=== PATIENT | female | born 1985 | race Caucasian/White ===

== ENCOUNTER 2021-04-15 17:42 | Emergency (ER) | payer BC, SELFPAY ==
--- NOTE | 2021-04-15 17:49 | ED.URI ---
HPI - URI/Sore Throat General Chief Complaint: Ear Stated Complaint: Ear Pain/Nausea/Diarrhea Time Seen by Provider: 04/15/21 18:16 Source: patient and RN notes reviewed Mode of arrival: ambulatory Limitations: no limitations History of Present Illness HPI Narrative: 35-year-old female presents with concern for ear pain, headache, body aches, nausea, diarrhea, fatigue after exposure to a coworker with Covid. Reports her symptoms started yesterday. She reports she is taking Excedrin. She denies shortness of breath, fever. MD elicited complaint: cough and sore throat Related Data Home Medications Medication Instructions Recorded Confirmed clonazepam 0.5 mg PO DAILY 04/15/21 04/15/21 lamotrigine [Lamictal] 200 mg PO DAILY 04/15/21 04/15/21 sertraline [Zoloft] 200 mg PO DAILY 04/15/21 04/15/21 Allergies Allergy/AdvReac Type Severity Reaction Status Date / Time Sulfa (Sulfonamide Allergy Unknown Hives / Verified 04/15/21 18:07 Antibiotics) Red Face Review of Systems Review of Systems: CONSTITUTIONAL: Reports malaise. Denies chills, sweats, or fever. EYES: Denies visual changes, redness, or discharge. ENT: Reports rhinorrhea, congestion, sinus pain, otalgia. Denies sore throat. CARDIOVASCULAR: Denies chest pain, palpitations, or edema. RESPIRATORY: Denies cough. Denies dyspnea. GASTROINTESTINAL: Denies abdominal pain. Reports nausea, vomiting, diarrhea SKIN: Denies rash or itching. MUSCULOSKELETAL: Reports myalgia. NEUROLOGIC: Reports headache. All systems reviewed & are unremarkable except as noted in HPI and below PMFSH Comments At time of signature, agree with nursing past medical, surgical, social and family history. There is no relevant family history pertinent to the presenting complaint Exam Narrative: GENERAL: Well-appearing, well-nourished, and in no acute distress. HEAD: Normocephalic EYES: PERRLA, conjunctivae clear ENT: Nares clear. Mucous membranes moist. TM pearly jameson with dull light reflex bilaterally; no tragal tenderness. Oropharynx not erythematous without lesions. Tonsils not enlarged and without exudate, no drooling, no hoarseness, no trismus, uvula midline. NECK: Supple. No lymphadenopathy CHEST: Clear to auscultation, breath sounds equal. No wheezing, rhonchi, rales, or stridor. No respiratory distress, speaks in full sentences. HEART: Regular rate and rhythm. No murmur heard. SKIN: Warm, dry, no rash. NEURO: Alert and oriented x3. PSYCH: Normal mood and affect Course Course Emergency Course: Patient is aware of diagnosis, understands and agrees to treatment plan. Anticipatory guidance given. Patient agrees to follow-up as directed and is aware of reasons to seek care at the emergency department. Portions of this record may have been created with voice recognition software Vital Signs Vital signs: Reviewed. MDM - URI/Sore Throat MDM Narrative Medical decision making narrative: Differential diagnosis considered: Pearson virus, strep pharyngitis, allergic rhinitis, upper respiratory tract infection, sinusitis, rhinosinusitis, nasopharyngitis. viral pharyngitis, otitis media, otitis externa, pneumonia, bronchitis, viral cough syndrome, viral syndrome, and influenza. Exam findings show no acute concerns or changes; patient is non-toxic appearing and is in no distress. Patient is appropriate for outpatient treatment and follow-up. Lab Data Attestation: I reviewed the patient's lab results. Critical Care Time Critical Care Time Critical Care Time: No Discharge Plan Discharge Clinical Impression: Close exposure to COVID-19 virus Upper respiratory infection Qualifiers: URI type: unspecified viral URI Qualified Code(s): J06.9 - Acute upper respiratory infection, unspecified Patient Disposition: Home, Self-Care Condition: Stable Instructions: Upper Respiratory Infection (ED) Additional Instructions: Your rapid Covid test is negative. Rapid Covid testing can have false results. An
[2021-04-15 17:53] VITALS: BP 101/57; PULSE 65; RESP 16; TEMP 37.3; O2SAT 99
== END 2021-04-15 18:37 | disposition home or self-care (01) ==
PROVIDERS: Emergency Provider Nurse Practitioner
DX: J06.9 Acute upper respiratory infection, unspecified (principal); Z20.822 Contact with and (suspected) exposure to COVID-19
CPT/HCPCS: 87426; 99213; C9803; G0463

== ENCOUNTER 2021-08-13 14:22 | Emergency (ER) | payer BC, SELFPAY ==
--- NOTE | ~2021-08-13 | CT_ITS ---
EXAMINATION: CT abdomen pelvis wo con DATE: 08/13/2021 17:35 INDICATION: flank pain, nausea TECHNIQUE: Computed tomography (CT) of the abdomen and pelvis was performed without intravenous contr ast. Automated exposure control and iterative reconstruction technique were employed. The dose-length product was 189.17 mGy-cm. COMPARISON: 10/18/2013. FINDINGS: Lower thorax: Unremarkable. Liver: Normal. Biliary/Gallbladder: Gallbladder is normal. No bile duct dilation. Spleen: Normal. Pancreas: No mass or duct dilation. Adrenals:No mass. Kidneys: No mass, stone, or hydronephrosis. GI tract: No small or large bowel dilation. Normal appendix. Mesentery/Peritoneum: No ascites, mass, or free air. Retroperitoneum: No mass. Pelvis: Pelvic organs are within normal limits. IUD, in good position. Bones/Soft Tissues: Soft tissues and body wall unremarkable. No acute osseous finding. Additional Findings: None. IMPRESSION: No acute abdominopelvic process. Reviewed, dictated and finalized at location K.
[2021-08-13 14:23] VITALS: BP 98/56; PULSE 67; RESP 18; TEMP 36.4; O2SAT 100
--- NOTE | 2021-08-13 15:08 | ED.ABDPAIN ---
HPI - Abdominal Pain General Chief Complaint: Abdominal Pain <TAMMIE Villavicencio Last Filed: 08/13/21 17:59> Stated Complaint: nausea <TAMMIE Villavicencio Last Filed: 08/13/21 17:59> Time Seen by Provider: 08/13/21 14:40 <TAMMIE Villavicencio Last Filed: 08/13/21 17:59> Source: patient <TAMMIE Villavicencio Last Filed: 08/13/21 17:59> Mode of arrival: ambulatory <TAMMIE Villavicencio Last Filed: 08/13/21 17:59> Limitations: no limitations <TAMMIE Villavicencio Last Filed: 08/13/21 17:59> History of Present Illness HPI narrative: This is a 35-year-old female that presents to the emergency department for nausea. Ongoing throughout this week. Reports today she has had some left-sided mid back pain. The pain is sharp and constant in nature. No recent injury or trauma. Denies fever, vomiting, dysuria, hematuria. <TAMMIE Villavicencio Last Filed: 08/13/21 17:59> Related Data Home Medications: Home Medications Medication Instructions Recorded Confirmed clonazepam 0.5 mg PO DAILY 04/15/21 04/15/21 lamotrigine [Lamictal] 200 mg PO DAILY 04/15/21 04/15/21 sertraline [Zoloft] 200 mg PO DAILY 04/15/21 04/15/21 <TAMMIE Villavicencio Last Filed: 08/13/21 17:59> Allergies/Adverse Reactions: Allergies Allergy/AdvReac Type Severity Reaction Status Date / Time Sulfa (Sulfonamide Allergy Unknown Hives / Verified 04/15/21 18:07 Antibiotics) Red Face <TAMMIE Villavicencio Last Filed: 08/13/21 17:59> Review of Systems Review of Systems: CONSTITUTIONAL: Denies fever GASTROINTESTINAL: Reports nausea. Denies abdominal pain, vomiting, or diarrhea. GENITOURINARY: Denies dysuria or hematuria. MUSCULOSKELETAL: Reports back pain <TAMMIE Villavicencio Last Filed: 08/13/21 17:59> All systems reviewed & are unremarkable except as noted in HPI and below <Janny Juan PA-C - Last Filed: 08/13/21 17:59> PMFSH Past Medical History Medical History: Medical History (Updated 08/13/21 @ 17:59 by Janny Juan PA-C) History of depression <Janny Juan PA-C - Last Filed: 08/13/21 17:59> Social History Social History: Social History (Updated 08/13/21 @ 15:10 by Janny Juan PA-C) Smoking status: Current every day smoker Tobacco type: e-cigarettes/vaping <Janny Juan PA-C - Last Filed: 08/13/21 17:59> Exam Narrative: GENERAL: Well-appearing, well-nourished, and in no acute distress. HEAD: Normocephalic, atraumatic. EYES: EOMI. CHEST: Clear to auscultation. No respiratory distress. No wheezes rales or rhonchi HEART: Regular rate and rhythm. No murmur heard. Normal peripheral pulses. ABDOMEN: Soft, nontender, nondistended, normal active bowel sounds. No CVA tenderness EXTREMITIES: Normal range of motion. No edema. SKIN: Warm, dry, no rash. NEURO: No focal deficits. Alert and oriented x3. PSYCH: Normal mood and affect <Janny Juan PA-C - Last Filed: 08/13/21 17:59> Course COOKER SULFITE/PA Physician Supervision For this patient encounter, I reviewed the COOKER SULFITE or PA documentation, treatment plan, and medical decision making <Bk Brasher MD - Last Filed: 08/13/21 18:31> Vital Signs Vital signs: Vital Signs Temperature 97.5 F L 08/13/21 14:23 Pulse Rate 67 08/13/21 14:23 Respiratory Rate 18 08/13/21 14:23 Blood Pressure 98/56 L 08/13/21 14:23 Pulse Oximetry 100 08/13/21 14:23 Temperature 97.5 F L 08/13/21 14:23 Pulse Rate 67 08/13/21 14:23 Respiratory Rate 18 08/13/21 14:23 Blood Pressure 98/56 L 08/13/21 14:23 Pulse Oximetry 100 08/13/21 14:23 <Janny Juan PA-C - Last Filed: 08/13/21 17:59> Vital Signs Temperature 97.5 F L 08/13/21 14:23 Pulse Rate 67 08/13/21 14:23 Respiratory Rate 18 08/13/21 14:23 Blood Pressure 98/56 L 08/13/21 14:23 Pulse Oximetry 100 08/13/21 14:23 Temperature 97.5 F L 08/13/21 14:23 Pulse Rate 6
[2021-08-13 15:17] LABS: Basophils Percent Auto 0.6 % (0.2-1.2); Eosinophils Absolute Auto 0.2 K/mm3 (0-0.3); Eosinophils Percent Auto 2.4 % (0-4.4); Hematocrit 39.3 % (37.0-47.0); Hemoglobin 13.3 g/dL (12.0-15.0); Immature Granulocyte Absolute 0.02 K/mm3 (0.00-0.031); Immature Granulocyte Percent A 0.3 % (0-0.5); Lymphocytes Absolute Auto 1.69 K/mm3 (0.9-3.2); Mean Corpuscular HGB Conc 33.8 g/dl (32-36); Mean Corpuscular Hemoglobin 28.4 pg (26-34); Mean Platelet Volume 9.9 fl (7.4-10.4); Monocytes Absolute Auto 0.5 K/mm3 (0.1-0.6); Monocytes Percent Auto 7.1 % (2.6-8.5); Neutrophils Absolute Auto 4.6 K/mm3 (1.3-6.7); Neutrophils Percent Auto 65.6 % (45.5-73.1); Platelet Count Result 259 k/mm3 (150-375); Red Blood Count 4.68 M/mm3 (4.2-5.4); Red Cell Distribution Width 12.2 % (11.5-14.5); White Blood Count 7.1 K/mm3 (4.5-10.0)
[2021-08-13 15:20] LABS: Add Urine Microscopic? NO; Appearance Urine Clear (Clear); Bilirubin Urine Negative (Negative); Blood Urine Negative (Negative); Color Urine Yellow (Yellow); Glucose Urine UA Negative (Negative); Ketones Urine Negative (Negative); Leukocyte Esterase Ur Negative LEU/UL (Negative); Nitrate Urine Negative (Negative); Protein Urine Negative (Negative); Specific Grav Ur 1.013 (1.001-1.035); Urobilinogen Urine Negative mg/dL (<2.0)
[2021-08-13 15:26] LABS: Alanine Aminotransferase 8 U/L (4-35); Albumin Level 4.4 g/dL (3.5-5.1); Alkaline Phosphatase 52 U/L (38-126); Anion Gap 6 mmol/L (8-16); Aspartate Amino Transferase 23 U/L (14-36); Bilirubin,Total 0.2 mg/dL (0.2-1.3); Blood Urea Nitrogen 16 mg/dL (7-17); Calcium 8.8 mg/dL (8.4-10.2); Carbon Dioxide 28 mmol/L (22-30); Chloride 105 mmol/L (98-107); Estimated CRCL calculation 78 ml/min; Estimated Glomerular Filt Rate > 60; Glucose 90 mg/dL (65-110); Lipase 152 U/L (23-300); Potassium 3.8 mmol/L (3.4-5.0); Sodium 139 mmol/L (137-145)
[2021-08-13] MEDS: SODIUM CHLORIDE 0.9% IV 1,000 ML 999 ML IV CONT (15:26)
[2021-08-13] MEDS: ONDANSETRON INJ 4 MG/2 ML VIAL IV PUSH (15:27)
[2021-08-13 16:22] LABS: Pregnancy On Board Control Positive; Urine Pregnancy Test Negative
== END 2021-08-13 18:17 | disposition home or self-care (01) ==
PROVIDERS: Physician Assistant; Emergency Provider Emergency Medicine
DX: M54.50 Low back pain, unspecified (principal); F32.A Depression, unspecified; F17.290 Nicotine dependence, other tobacco product, uncomplicated
CPT/HCPCS: 36415; 74176; 80053; 81003; 81025; 83690; 85025; 96361; 96365; 96375; 99284; J0131; J2405; J7030

== ENCOUNTER 2023-05-12 16:48 | Emergency (ER) | payer BC, SELFPAY ==
[2023-05-12 17:00] VITALS: BP 106/74; PULSE 75; RESP 16; TEMP 36.6; O2SAT 100
--- NOTE | 2023-05-12 17:09 | ED.SKABFB ---
HPI - Skin/Abscess/Foreign Bdy General Chief complaint: Skin/Abscess/Foreign Body Stated complaint: PAIN IN VEINS Time Seen by Provider: 05/12/23 17:05 Source: patient Mode of arrival: ambulatory Limitations: no limitations History of Present Illness HPI narrative: 37-year-old female presents concern for pain her arms and legs. She reports that feels like her veins are swollen and painful. She reports several days ago she had immediate puncture in her right antecubital space and later noticed swelling and pain in that area. She reports she then began having the same swelling and pain in her left antecubital space. She reports she then began having swelling and swollen veins in her lower legs. She reports the legs were very painful. She reports on her left antecubital space old scars that she had have popped up into ?keloid? like lesions. She reports tenderness and swelling to veins in her left wrist. She reports she has been taking ibuprofen. She denies fever, chills, sweats, headache, shortness of breath, cough, chest pain. She reports when the veins on her legs were swollen her ankles were swollen. She reports a history of IV drug use, she has not used drugs for 7 years. She went to the emergency room and they deja her blood, she was told there would be a 10 hour wait so she did not wait. She reports she has lab work from the ER that her doctor looked at and said it looked relatively normal. MCV and RDW were abnormal MD complaint: other Related Data Home Medications Medication Instructions Recorded Confirmed clonazepam 0.5 mg disintegrating 0.5 mg PO DAILY 04/15/21 05/12/23 tablet lamotrigine 200 mg tablet 200 mg PO DAILY 04/15/21 05/12/23 (Lamictal) sertraline 100 mg tablet (Zoloft) 200 mg PO DAILY 04/15/21 05/12/23 methadone 40 mg soluble tablet 40 mg PO DAILY 05/12/23 05/12/23 Allergies Allergy/AdvReac Type Severity Reaction Status Date / Time Sulfa (Sulfonamide Allergy Unknown Hives / Verified 05/12/23 17:46 Antibiotics) Red Face Review of Systems Review of Systems: CONSTITUTIONAL: Denies malaise, chills, sweats, or fever. CARDIOVASCULAR: Denies chest pain, palpitations, or edema. RESPIRATORY: Denies cough or dyspnea. GASTROINTESTINAL: Denies abdominal pain, nausea, vomiting, diarrhea, SKIN: Reports raised scars on her left antecubital space MUSCULOSKELETAL: Denies back pain, joint pain, or myalgia. NEUROLOGIC: Denies numbness, weakness, or headache. All systems reviewed & are unremarkable except as noted in HPI and below PMFSH Past Medical History Medical History (Updated 05/13/23 @ 00:01 by Jennifer Sampson) Anxiety History of depression HSV-1 infection Surgical History Surgical History (Updated 06/09/22 @ 09:28 by Oriana Killian CMA) H/O gynecological procedure 2013 insertion 2014 removal 2020 insertion History of loop electrical excision procedure (LEEP) Family History Family History (Updated 06/09/22 @ 09:26 by Oriana Killian CMA) Grandparent Hypertension Heart disease Diabetes mellitus Social History Social History (Updated 08/13/21 @ 15:10 by Janny Juan PA-C) Smoking status: Current every day smoker Tobacco type: e-cigarettes/vaping Comments At time of signature, agree with nursing past medical, surgical, social and family history. There is no relevant family history pertinent to the presenting complaint Exam Narrative: GENERAL: Well-appearing, well-nourished, and in no acute distress. HEAD: Normocephalic, atraumatic. EYES: PERRLA, sclera clear, and EOMI. ENT: Nares clear, no rhinorrhea or epistaxis. Mucous membranes moist. NECK: Supple. No lymphadenopathy. CHEST: No respiratory distress. Clear to auscultation. No bony deformities, no asymmetry. Speaks in full sentences. HEART: Regular rate and rhythm. No murmur heard. Normal peripheral pulses. EXTREMITIES: Normal range of motion. No edema. Normal strength and sensation. SKIN: Warm, d
== END 2023-05-12 17:42 | disposition home or self-care (01) ==
PROVIDERS: Emergency Provider Nurse Practitioner; PCP Nurse Practitioner Family
DX: I80.8 Phlebitis and thrombophlebitis of other sites (principal); F41.9 Anxiety disorder, unspecified; F32.A Depression, unspecified; F17.290 Nicotine dependence, other tobacco product, uncomplicated
CPT/HCPCS: 99213; G0463

== ENCOUNTER 2025-02-16 08:32 | Emergency (ER) | payer BC, SELFPAY ==
[2025-02-16 08:39] VITALS: BP 97/49; PULSE 83; RESP 16; TEMP 36.5; O2SAT 99
--- OUTSIDE RECORDS SUMMARY | 2025-02-16 08:42 | XMS_ITS | Encounter Summary ---
Author Organization [facility] Address [address] [facility] [address] [place] [address] Care Team Providers Care Long Chain Beamer Name Role Phone Mayito Spivey MD Primary Care Provider [phone] Encounter Details Date Type Department Care Team (Late st Contact Info) Description 07/03/2023 Lab Requisition [facility] - DermPath Lab [address] [place] [phone] Lydia Caba MD [address] [phone] Social History Tobacco Use Types Packs/Day Years Used Date Smoking Tobacco: Former Cigarettes Q uit: 03/17/2019 Smokeless Tobacco: Never Alcohol Use Standard Drinks/Week Comments No 0 (1 standard drink = 0.6 oz pur e alcohol) Comments No Sex and Gender Information Value Date Recorded Sex Assigned at Not on file 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 Gender Identity Not on file Sexual Orientation Not on file documented as of this encounter Plan of Treatment Not on file documented as of this encounter Procedures Procedure Name Priority Date/Time Associated Diagnosis Comments DERMATOPATHOLOGY Routine 07/02/2023 3:33 AM CDT documented in this encounter Results * DERMATOPATHOLOGY (07/02/2023 3:33 AM CDT) Case Report Dermatopathology Report Case: [id number] Authorizing Provider: Lydia Caba MD Collected: 07/02/2023 03:33 AM Ordering Location: [facility] - Received: 07/03/2023 08:10 AM DermPath Lab Pathologist: Laurence Cm MD Specimen: Skin, right ankle 10:23 AM CDT DERMATOPATHOLOGY LABORATORY Final Diagnosis Specimen A. 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 The specimen consists of a punch biopsy measuring 3x3x3 mm. Jar 0. 10:23 AM CD DERMATOPATHOLOGY LABORATORY Microscopic Description Specimen A. SKIN, right ankle: There is a dermal inflammatory infiltrate including epithelioid histiocytes arranged in well-defined granulomas with foci of sparse lymphocytes. Giant cells are seen. Eosinophils are not appreciated. There is associated granular pigment in macrophages and free within the dermis. Birefringent material is not observed when the specimen is examined under polarized light. Grocott's methenamine silver (GMS) stain fails to highlight fungal elements in the available sections. Fani stain fails to highlight organisms. COMMENT: The histologic differential diagnosis includes a foreign body reaction to tattoo pigment; a systemic granulomatous process, such as sarcoidosis or metastatic Crohns disease, occurring in association with tattoo; and granulomatous hypersensitivity reaction to tattoo pigment, although somewhat less likely given the lack of eosinophils. In addition, although GMS and FANI stains are negative, an infectious process cannot be entirely excluded, and clinical correlation with culture is recommended if clinically indicated. 10:23 AM [facility] DERMATOPATHOLOGY LABORATORY Disclaimer An external and internal positive and negative controls are appropriate for the histochemical, immunohistochemical and immunofluorescence stain(s) in this case (if any), except where stated explicitly. The performance characteristics of the stain(s) cited in this report were developed and its performance characteristic determined by the Dermatopathology Laboratory at [facility], directed by Dr. Lexx Wetzel. These tests need not be, and therefore are not, approved by the [place] Food and Drug Administration. The tests are used for clinical purposes. Billing Codes Specimen Charges Stain Charges 63495 1 54674 74034 1 1 4 10:23 AM CDT DERMATOPATHOLOGY LABORATORY Embedded Images 4 10:23 AM CDT DERMATOPATHOLOGY LABORATORY Pathology/Cytolo gy TISSUE SPECIMEN FROM SKIN / Unknown 07/02/2023 3:33 AM CDT 07/03/2023 8:10 AM CDT Lydia Caba MD LAB - PATHOLOGY/CYTOLOGY OR DERABLES Final Result DERMATOPATHOLOGY LABORATORY [facility] - Department of Dermatology [facility] [address] [facility], [address]rd [address] [phone] documented in this encounter Visit Diagnoses Not on filedocumented in this encounter Care Teams Long Chain Beamer Relationship Specialty Start Date End Date Mayito Spivey MD [address] [facility] [address] [place] [address] PCP - General 12/07/15 documented as of this encounter
--- OUTSIDE RECORDS SUMMARY | 2025-02-16 08:42 | XMS_ITS | Encounter Summary ---
Author Organization [facility] Address [address] [place] [address] Care Team Providers Care Action Finisher Name Role Phone Mayito Spivey MD Primary Care Provider [phone] Encounter Details Date Type Department Care Team (Late st Contact Info) Description 09/06/2023 Lab Requisition [facility] - DermPath Lab [address] [place] [phone] Lydia Caba MD [address] [phone] Social History Tobacco Use Types Packs/Day Years Used Date Smoking Tobacco: Former Cigarettes Q uit: 03/17/2019 Smokeless Tobacco: Never Alcohol Use Standard Drinks/Week Comments No 0 (1 standard drink = 0.6 oz pur e alcohol) Comments No Sex and Gender Information Value Date Recorded Sex Assigned at Not on file 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 Gender Identity Not on file Sexual Orientation Not on file documented as of this encounter Plan of Treatment Not on file documented as of this encounter Procedures Procedure Name Priority Date/Time Associated Diagnosis Comments DERMATOPATHOLOGY Routine 09/04/2023 12:0 0 AM CDT documented in this encounter Results * DERMATOPATHOLOGY (09/04/2023 12:00 AM CDT) Case Report Dermatopathology Report Case: [id number] Authorizing Provider: Lydia Caba MD Collected: 09/04/2023 12:00 AM Ordering Location: [facility] - Received: 09/06/2023 01:59 PM DermPath Lab Pathologist: Janny Cm MD Specimen: Skin, right infermammary breast 11:25 AM T DERMATOPATHOLOGY LABORATORY Final Diagnosis Specimen A. SKIN, right infermammary breast: LENTIGINOUS MELANOCYTIC NEVUS, COMPOUND TYPE, IRRITATED (D22.5) (see microscopic description and comment) 11:25 AM T DERMATOPATHOLOGY LABORATORY at 1125 CDT Clinical History R/o melanoma. 11:25 AM CDT DERMATOPATHOLOGY LABORATORY Gross Description Specimen A: Received is one formalin filled container labeled with the patient's name and designated right infermammary breast. The specimen consists of a shave biopsy measuring 9x5x1 mm. Jar 0. 11:25 AM T DERMATOPATHOLOGY LABORATORY Microscopic Description Specimen A. SKIN, right infermammary breast: Sections show a predominantly nested, compound proliferation of melanocytes, some of which are large and have spindled configurations. The papillary dermis is fibrotic, and the proliferation displays a flat profile from scanning magnification. The hematoxylin and eosin stain is reviewed; immunohistochemical stains are performed to further characterize this process. Mart1/MelanA highlights the low-lying nature of this lesion. HMB45 displays maturation with depth within the sampled dermis. p16 expression is retained in mosaic fashion. PRAME is not overexpressed. COMMENT: This specimen displays some overlapping features of a lentiginous (dysplastic) nevus and pigmented spindle cell nevus of Masoud. If this specimen is sampled from a larger lesion, however, these findings may not be advertising representative of the entire lesion. Clinicopathologic correlation is recommended. This case has been reviewed by Dr. Melva Wetzel who concurs with the diagnosis. 11:25 AM T DERMATOPATHOLOGY LABORATORY Disclaimer An external and internal positive and negative controls are appropriate for the histochemical, immunohistochemical and immunofluorescence stain(s) in this case (if any), except where stated explicitly. The performance characteristics of the stain(s) cited in this report were developed and its performance characteristic determined by the Dermatopathology Laboratory at [facility], directed by Dr. Lexx Wetzel. These tests need not be, and therefore are not, approved by the [place] Food and Drug Administration. The tests are used for clinical purposes. Billing Codes Specimen Charges Stain Charges 94422 1 62888 92025 [id number] [id number] 1 1 1 1 4 11:25 AM CDT DERMATOPATHOLOGY LABORATORY Embedded Images 4 11:25 AM CDT DERMATOPATHOLOGY LABORATORY Pathology/Cytolog y TISSUE SPECIMEN FROM SKIN / Unknown 09/04/2023 09/06/2023 1:59 PM CDT Lydia Caba MD LAB - PATHOLOGY/CYTOLOGY OR DERABLES Final Result DERMATOPATHOLOGY LABORATORY [facility] - Department of Dermatology [facility] Medicine [address] [facility], 3rd Floor [address] [phone] documented in this encounter Visit Diagnoses Not on filedocumented in this encounter Care Teams Action Finisher Relationship Specialty Start Date End Date Mayito Spivey MD [address] [facility] [address] [place] [phone] PCP - General 12/07/15 documented as of this encounter
--- OUTSIDE RECORDS SUMMARY | 2025-02-16 08:42 | XMS_ITS | Clinical Summary ---
Author Organization [facility] Address [address] [place] [address] Care Team Providers Care Casket Assembler Name Role Phone Collins Lantigua MD Primary Care Provider [phone] Allergies Active Allergy Reactions Criticality Noted Date Comments Nitrofurantoin Vomiting Low 05/16/2023 Sulfa (Sulfonamide Antibiotics) Sulfamethoxazole-Trimethoprim Medications lamoTRIgine (LaMICtal) 200 mg tablet Take 1 tablet (200 mg total) by mouth nightly 1 Active clonazePAM (KlonoPIN) 0.5 mg tablet TAKE 1/2 TABLET BY MOUTH 1 TO 2 TIMES PER DAY NEEDED FOR SEVERE ANXIETY 1 Active buPROPion XL (WELLBUTRIN XL) 300 mg 24 hr tablet Take 1 tablet (300 mg total) by mouth daily 3 Active sertraline (ZOLOFT) 50 mg tablet Take 1 tablet (50 mg total) by mouth daily 3 Active omeprazole (PriLOSEC) 40 mg capsule Take 1 capsule (40 mg total) by mouth 2 (two) times a day before breakfast and dinner 180 capsule 1 3 Active methadone solution 5 mg/5 mL Take 85 mL (85 mg total) by mouth daily Active Active Problems Problem Noted Date Diagnosed Date Acute cystitis without hematuria 01/08/2024 Assessment & Plan (01/08/2024 4:03 PM CDT): Will initiate ciprofloxacin. UA and culture sent. Consider referral to Urology for recurrent UTIs. She declines today. Red flags reviewed. Rectocele 01/08/2024 Assessment & Plan (01/08/2024 4:03 PM CDT): Referral to general surgeon. Continue with stool softeners. Polyarthralgia 05/16/2023 Assessment & Plan (01/08/2024 4:02 PM CDT): Clinically stable currently. Following with Rheumatology. Considering sarcoidosis. Assessment & Plan (05/16/2023 4:59 PM HALL DIRECTOR): See plan as above. Superficial phlebitis 05/16/2023 Assessment & Plan (06/01/2023 10:10 AM HALL DIRECTOR): No evidence of superficial thrombophlebitis on exam. Patient does has scattered small tender nodules to the wrist hands and forearms. There is no erythema no induration or signs of acute infection. Patient is recently had a viral illness which may have triggered her symptoms. States she does have an appointment with rheumatology next week which is what I suspect is the source of her issues. She does not need any vascular intervention at this time. Can follow-up as needed. Assessment & Plan (05/16/2023 4:59 PM HALL DIRECTOR): Resolved. Reviewed lifestyle recommendations. Reassurance provided regarding normal exam today. She is very anxious and concerned with vascular disorders. Will order ABIs. She would also like to see vascular specialist for evaluation. Referral placed. Will monitor response. Epigastric pain 09/08/2022 Assessment & Plan (09/08/2022 5:08 PM CDT): Epigastric pain constant not necessarily associated with eating Lower abdominal pain and bloating that improves afer BM BM usually anywhere between every 4-5 days to diarrhea, constipated more predominant Takes miralax as needed a few times a month and probiotics Never tried fiber supplement, trying to eat more fiber Constant nausea No heartburn in a while, recently started lactose free milk NSAID use regularly Afraid to eat, decreased appetite Gaining weight over the last year KUB from 04/2022 showed stool burden Labs from 12/2019 that showed mildly decreased sodium 134 otherwise normal CMP and CBC No previous endoscopies Plan I suspect she has component of IBS with constipation predominant as well as possible functional dyspepsia, also high-risk for NSAID induced PUD We will check stool H prior and then try omeprazole 40 mg daily for the next 3 months to see if she has any symptom relief Start Metamucil and MiraLax for constipation Check celiac, cbc, cmp, TSH, CRP, ESR, calpro Avoid NSAID use Other constipation 09/08/2022 Alternating constipation and diarrhea 09/08/2022 Assessment & Plan (09/08/2022 5:06 PM CDT): Suspect possible IBS. 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 Noting more joint pain as well. Will have laboratory workup. She is going to continue with methadone. Not interested in any other medications due to her history of drug abuse. Will have evaluation with Rheumatology. Appreciate their expertise. Immunizations Immunization Administration Dates Next Due Influenza, Quadrivalent, Spl it, Preservative Free, Intramuscular 01/19/2021 Influenza, Unspecified 01/08/2024(Deferr ed: Patient Refused),01/08/2024(Deferred: Patient Refused),12/15/2022(Deferred: Patient Refused),07/13/2022(Deferred: Patient Refused) Pfizer SARS-CoV-2 Monovalent Vaccination (12+ Yrs) PURPLE 07/29/2020,07/02/2020 Surgical History Surgery Date Site/Laterality Comments CERVICAL BIOPSY W/ LOOP ELECTRODE EXCISION Medical History Medical History Date Comments Chronic bronchitis (HCC) Anxiety Depression Migraines Family History Medical History Relation Name Comments Asthma Brother Gurinder Rashes / Skin problems Brother Gurinder Rheum arthritis Brother Gurinder Heart attack Maternal Grandfather Susana Heart disease Maternal Grandfather Susana Hypertension Maternal Grandfather Susana Diabetes Maternal Grandmother Louise Thyroid disease Maternal Grandmother Louise Depression Mother Nanci Mental illness Mother Nanci Relation Name Status Comments Brother Gurinder Maternal Grandfather Susana Maternal Grandmother Louise Mother Nanci Social History Tobacco Use Types Packs/Day Years Used Date Smoking Tobacco: Every Day Vaping Smokeless Tobacco: Never Tobacco Cessation:Ready to Q uit: Not Asked; Counseling Given: Not Answered Comments:Vape AUDIT-C Answer Date Recorded Q1: How often do you have a drink containing alcohol? Never 08/17/2022 Q2: How many drinks containi ng alcohol do you have on a typical day when you are drinking? Patient does not drink Q3: How often do you have si x or more drinks on one occasion? Never 08/17/2022 PHQ-2 Answer Date Recorded PHQ-2 Total Score (If total score is 3 or more points, staff should administer the PHQ-9) 0 01/08/2024 Personal Safety Answer Date Recorded Have you ever been in or are you currently in a harmful physical or emotional relationship or is someone making you feel afraid or unsafe? Denies 05/03/2023 Comments No Sex and Gender Information Value Date Recorded Sex Assigned at Not on file Legal Sex Female 8:48 PM HALL DIRECTOR Gender Identity Not on file Sexual Orientation Straight 12/19/2020 11 :52 AM CDT Last Filed Vital Signs Vital Sign Reading Time Taken Comments Blood Pressure 100/66 01/08/2024 3:25 PM CDT Pulse 76 01/08/2024 3:25 PM CDT Temperature 36.5 C (97.7 F) 01/08/2024 3:25 PM CDT Respiratory Rate 20 01/08/2024 3:25 PM CDT Oxygen Saturation 98% 01/08/2024 3:25 PM CDT Inhaled Oxygen Concentration - - Weight 74.8 kg (164 lb 12.8 oz) 01/08/2024 3:25 PM CDT Height 165.1 cm (5' 5) 01/08/2024 3:25 PM CDT Body Mass Index 27.42 01/08/2024 3:25 PM CDT Plan of Treatment Health Maintenance Due Date Last Done Comments Cervical Cancer Screening 1986 DTaP/Tdap/Td Vaccine (1 - Tdap) 1997 Varicella Vaccines (1 of 2 - 13+ 2-dose series) 10/23/1999 Hepatitis B Screening 2004 Regular Well Visit/Exam 18-64 2004 Pneumococcal vaccine <65 (1 of 2 - PCV) 2005 HPV Vaccines (1 - 3-dose SCDM series) 2013 Covid-19 Vaccine (3 - 2024- season) 2024, 07/02/2020 Influenza Vaccine (#1) 2024 01/19/2021 Depression Screening 01/07/2025 01/08/2024, 08/18/19 Hepatitis C Screening Completed 06/06/2023 Medical Devices Implanted Type Area Nuclear Chemistry Technician Device Identifier Shelf Expiration Date Model / Serial / Lot Tooth Right: Tooth Procedures Procedure Name Priority Date/Time Associated Diagnosis Comments HEPATITIS C ANTIBODY Routine 06/06/2023 10:55 AM HALL DIRECTOR from Last 3 Months or Most Recently Relevant to Health Maintenance Results * Hepatitis C antibody Blood (06/06/2023 10:55 AM HALL DIRECTOR) Hep C Ab Nonreactive Nonreactive [facility] Comment: Interpretive Data Nonreactive: Antibodies to HCV not detected. Does NOT exclude the possibility of recent exposure to HCV. Equivocal: Equivocal for HCV antibodies. Supplemental molecular testing will be automatically performed to determine infection status in accordance with current CDC screening recommendations. Reactive: Positive for HCV antibodies. This may represent current or past HCV infection. Supplemental molecular testing will be automatically performed to determine current infection status in accordance with current CDC screening recommendations. Interpretive data was last revised on 2019. Blood 06/06/2023 10:5 5 AM HALL DIRECTOR 06/06/2023 2:08 PM HALL DIRECTOR us Layne Up MD LAB MICROBIOLOGY - GENERAL ORDER KAIDEN Final Result [facility] [address] [place] [address] from Last 3 Months or Most Recently Relevant to Health Maintenance Insurance [place] CHO[place] Advance Directives For more information, please contact: [phone] * Full Code (Latest Code Status on File) Date Activated Date Inactivated Comments 10/16/2022 9:56 AM 10/16/2022 4:29 PM * Full Code Date Activated Date Inactivated Comments 10/16/2022 9:55 AM 10/16/2022 9:56 AM Care Teams Casket Assembler Relationship Specialty Start Date End Date Collins Lantigua MD [address] [place] [address] PCP - General Family Medicine 05/16/23
--- OUTSIDE RECORDS SUMMARY | 2025-02-16 08:42 | XMS_ITS | Clinical Summary ---
Author Organization [facility] Address [address] [place] [address] Care Team Providers Care Fine Arts Teacher Name Role Phone Mayito Spivey MD Primary Care Provider [phone] Source Comments [facility],non-owned Affiliates and Associated Physician Practices is amultiple site organization consisting of ambulatory clinics and hospital sitesin [place], [place], [place] and [place]. This disclosure is being madepursuant to the Care Everywhere program and may not contain all information available regarding this patient. Last updated 18.[facility] [employer] [facility] Allergies Active Allergy Reactions Criticality Noted Date Comments Sulfamethoxazole W-Trimethoprim Urticaria Medium 05/16/2019 Metronidazole Other Low 11/23/2014 Vision changes,vomiting,chest pain Tramadol Other Low 11/23/2014 Bad migraines, disorientated Medications * Be aware that medications may not be up to date on this document. Alwaysverify current medications with the patient. sertraline (ZOLOFT) 25 MG tablet Take 25 mg by mouth once daily Active lamoTRIgine (LAMICTAL) 150 MG tablet Take 150 mg by mouth 2 times daily Active clonazePAM (KLONOPIN PO) Active naproxen (NAPROSYN) 500 MG tablet Take 500 mg by mouth 2 times daily Active tiZANidine (ZANAFLEX) 4 MG tablet Take 4 mg by mouth every 8 hours as needed for Muscle Spasms Active Family History Medical History Relation Name Comments Arthritis - Rheumatoid Brother Heart Disease Maternal Grandfather Depression Maternal Grandmother Diabetes Maternal Grandmother Depression Mother Relation Name Status Comments Brother Maternal Grandfather Maternal Grandmother Mother Social History Tobacco Use Types Packs/Day Years Used Date Smoking Tobacco: Former Cigarettes Q uit: 03/17/2019 Smokeless Tobacco: Never Alcohol Use Standard Drinks/Week Comments No 0 (1 standard drink = 0.6 oz pur e alcohol) Comments No Sex and Gender Information Value Date Recorded Sex Assigned at Not on file Legal Sex Female 6:09 PM HOTEL 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 ASSISTANT Gender Identity Not on file Sexual Orientation Not on file Last Filed Vital Signs Vital Sign Reading Time Taken Comments Blood Pressure 130/78 09/21/2019 12:53 PM CDT Pulse 68 09/21/2019 12:53 PM CDT Temperature 36.8 C (98.3 F) 09/21/2019 12:53 PM CDT Respiratory Rate 20 09/21/2019 12:53 PM CDT Oxygen Saturation 98% 06/28/2019 12:27 PM CDT Inhaled Oxygen Concentration - - Weight 56.7 kg (125 lb) 06/28/2019 12:27 PM CDT Height 165.1 cm (5' 5) 06/28/2019 12:27 PM CDT Body Mass Index 20.8 06/28/2019 12:27 PM CDT Plan of Treatment Health Maintenance Due Date Last Done Comments HIV SCREENING 2001 HEPATITIS C SCREENING 10/17/2004 DTAP/TDAP/TD VACCINES (1 - Tdap) 2005 HEPATITIS B VACCINE (1 of 3 - 19+ 3-dose series) 2005 PAP SMEAR 10/23/2007 HPV VACCINE (1 - 3-dose SCDM series) 2013 DEPRESSION SCREENING 04/16/2024 COVID-19 VACCINE (1 - 2023-2 5 season) 2024 INFLUENZA VACCINE (#1) 2024 ZOSTER VACCINE (1 of 2) 2036 HIB VACCINE Aged Out No longer eligi ble based on patient's age to complete this topic MENINGOCOCCAL (Group B) VACC INE SHARED DECISION-MAKING Aged Out No longer eligibl e based on patient's age to complete this topic MENINGOCOCCAL GROUPS A/C/Y/W VACCINE Aged Out No longer eligible b ased on patient's age to complete this topic PNEUMOCOCCAL VACCINE Aged Out No long er eligible based on patient's age to complete this topic Insurance ANTHEM Care Teams Fine Arts Teacher Relationship Specialty Start Date End Date Mayito Spivey MD [address] [place] [id number] PCP - General 12/07/15
--- OUTSIDE RECORDS SUMMARY | 2025-02-16 08:42 | XMS_ITS | Patient Health Record ---
Author Organization [facility] Address [address] [place] [address] Care Team Providers Care Swing Frame Grinder Operator Name Role Phone Isa OUTDOOR LANDSCAPE ARCHITECT, Claudette Primary Care Provider Geovanni logan Allergies Allergen (clinical drug ingredient) Drug/Non Drug Allergy documented on EMR Reaction Allergy Type Onset Date Status nitrofurantoin, macrocrystals / nitrofurantoin, monohydrate Macrobid Unknown Drug Allergy Active Substance with sulfonamide structure and antibacterial mechanism of action (substance) Sulfa Antibiotics Unknown Drug Allergy Active Reason For Referral No Information Medications Medication SIG (Take, Route, Fr equency, Duration) Notes Start Date End Date Status Methadone HCl Active Vitamin C Active Vitamin D3 Active Zoloft 100 MG 2 tablets Orally Onc e a day; Duration: 30 day(s) Active clonazePAM 0.5 MG 1 tablet Orally Once a day Active LaMICtal 200 MG 1 tablet Orally Once a day; Duration: 30 day(s) Active Social History Household Question Answer Notes Marital status: Number of children in household: 2 Tobacco Control (Standard) Question Answer Notes Additional Findings: Tobacco user e-cigarette Problems Problem Type SNOMED Code ICD Code Onset Dates Problem Status W/U Status Risk Notes Problem Fibromyalgia (371819583) Fibromyalgia (M79.7) Active confirmed Plan Of Treatment Pending Test Test Name Order Date Creatine Kinase,Total,Serum 06/06/2023 G-6-PD, Quant, Blood and RBC 06/06/2023 Sedimentation Rate-Westergren 06/06/2023 Rheumatoid Arthritis Factor 06/06/2023 C-Reactive Protein, Quant 06/06/2023 Sjogren's Ab, Anti-SS-A/-SS-B 06/06/2023 CCP IgG Antibodies 06/06/2023 KRISTEN w/Reflex 06/06/2023 Hepatitis BsAg 06/06/2023 Hepatitis C antibody 06/06/2023 Insurance Providers Payer Name Payer Address Payer Phone Subscriber Number Group Number Insured Name Patient Relationship to Insured Coverage Start Date Coverage End Date [place] [address] [place] [address] [id number] Mira Ponce Self - patient is the insured Medical (General) History Medical History History ICD Code parotitis, depression, anxie ty, fibromyalgia, cervical disc disease, migraines, peptic ulcers Surgical History Surgery Date(Month/Year) cervical biopsy with loop electrode exci christy
--- OUTSIDE RECORDS SUMMARY | 2025-02-16 08:42 | XMS_ITS | Patient Health Record ---
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 Name Role Phone Claudette Lees Primary Care Provider Un available Oneil Marks Unavailable [phone] Liset Ford Unavailable [phone] Janny Swanson Unavailable [phone] Sameer Tolentino Unavailable [phone] Allergies Allergen (clinical drug ingredient) Drug/Non Drug Allergy documented on EMR Reaction Allergy Type Onset Date Status Substance with sulfonamide structure and antibacterial mechanism of action (substance) Sulfa Antibiotics Unknown Drug Allergy Active Results Component Value Reference Range Flag Notes DRUG MONITOR, BENZO, QN, URI [place] ([id number]) Reviewed date:04/15/2024 01:38:09 PM Interpretation: Performing Lab:[facility] [id number] [facility] Jonah Hutson Notes/Report: FASTING: NO Alphahydroxyalprazolam NEGATIVE <25 ng/mL Alphahydroxymidazolam NEGATIVE <50 ng/mL Alphahydroxytriazolam NEGATIVE <50 ng/mL Aminoclonazepam 33 <25 ng/mL H Hydroxyethylflurazepam NEGATIVE <50 ng/mL Lorazepam NEGATIVE <50 ng/mL Nordiazepam NEGATIVE <50 ng/mL Oxazepam NEGATIVE <50 ng/mL Temazepam NEGATIVE <50 ng/mL Benzodiazepines Comments See Benzodiazepines Notes, LDT Notes DRUG MONITOR, METHADONE META B, QN, URINE ([id number]) Reviewed date:04/15/2024 01:38:24 PM Interpretation: Performing Lab:[facility], [facility] [id number] [facility] Dustin [id number] Jonah Winston Haresh, Director - [id number] [address] [facility] Notes/Report: FASTING: NO EDDP >13102 <100 ng/mL H Methadone >97081 <100 ng/mL H Methadone Comments See Me feli Notes, LDT Notes Notes and Comments This drug testing is for medical treatment only. Analysis was performed as non-forensic testing and these results should be used only by healthcare providers to render diagnosis or treatment, or to monitor progress of medical conditions. Benzodiazepines Notes: Aminoclonazepam detected is consistent with the use of the drug Clonazepam. Methadone Notes: Methadone, EDDP detected is consistent with the use of the drug Methadone. LDT Notes: Confirmation tests were developed and their analytical performance characteristics have been determined by [facility]. It has not been cleared or approved by the FDA. This assay has been validated pursuant to the CLIA regulations and is used for clinical purposes. Healthcare Providers needing Interpretation assistance, please contact us at [phone] ( ) M-F, 8am to 10pm EST Reason For Referral Reason Chronic fatigue Bauer s utilized multiple different medications in the past in order to sleep No history of sleep study Diagnosis 1 Major depressive dis order, recurrent severe without psychotic features (F33.2) Referral Organization [facility], [facility] Referring Provider First Name Janny Referring Provider Last Name Kiki Referred Provider Specialty Sleep Medici ne Referral Priority Routine Medications Medication SIG (Take, Route, Frequency, Duration) Notes Start Date End Date Status lamoTRIgine 150 MG Tablet 1 tablet Oral Once a day; Duration: 90 days 01/02/2025 Active FLUoxetine HCl 40 MG Capsule 1 capsule Oral Once a day; Duration: 90 days Active Sertraline HCl 100 MG Tablet Oral; Duration: 21 Days Unkn own clonazePAM 0.5 MG Tablet 1 tablet Oral Once a day; Duration: 25 days As needed Unknown Methadone HCl-Sodium Chloride Unknown Fiber Unknown Multivitamin Unknown Vraylar 1.5 MG Capsule 1 capsule Orally Once a day Unknown Vitamin B12 Unknown Semaglutide 7 MG Tablet 1 tablet at leas t 30 minutes before first food, beverage or other oral medicine of the day Orally Once a day Unknown Vraylar 1.5 MG Capsule 1 capsule at bedt wm Orally Once a day; Duration: 90 days 01/02/2025 Active Social History Tobacco Use: Social History Observation Description Date Details (start date - stop date) Unknown Sex Assigned At : Social History Observation Description Sex Assigned At Female Social History Miscellaneous: Social Info Question Answer Notes Advance Care Planning Are you your own decision-maker Yes Do you have Power of [facility] or [facility]? No Safety issues: Are there any firearms in the house? No Social History Social Info Question Answer Notes Household: Marital Status: Number of Adults in household: 2 Number of Children in Household: 2 Level of Education: Not Finished College Drug/Alcohol: Social Info Question Answer Notes Drugs Have you used drugs other than those for medical reasons in the past 12 months? No AUDIT-C (Standard) Did you have a drink containing alcohol in the past year? 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.2) Active confirmed Problem Generalized anxiety disorder (34016616) SAUL (generalized anxiety disorder) (F41.1) Active confirmed Problem Severe recurrent major depression without psychotic features (39882978) Severe episode of recurrent major depressive disorder, without psychotic features (F33.2) Active confirmed Problem Opioid dependence in remission (disorder) (776183661) Opioid use disorder in remission (F11.91) Active confirmed Vital Signs Heart Rate 71 /min 01/02/2025 Height-cm 165.1 cm 01/02/2025 Blood pressure diastolic 63 mm Hg 01/02/2025 Weight-kg 70.31 kg 01/02/2025 Height 65 in 01/02/2025 Blood pressure systolic 91 mm Hg 01/02/2025 Weight 155 lbs 01/02/2025 BMI 25.79 kg/m2 01/02/2025 Encounters Encounter Location Date Provider Diagnosis [facility], [facility] [address] [address] 02/22/2024 Janny Hinderliter Major depressive disorder, recurrent severe without psychotic features F33.2 [facility] [employer] [address] [place] [address] 02/29/2024 Janny Hinderliter Major depressive disorder, recurrent severe without psychotic features F33.2 [facility], [facility] [address] [place] [address] 03/07/2024 Janny Hinderliter Major depressive disorder, recurrent severe without psychotic features F33.2 [facility] [employer] [facility], [facility] [address] [place] [address] 03/21/2024 Janny Hinderliter Major depressive disorder, recurrent severe without psychotic features F33.2 [facility] [employer] [address] [place] [address] 03/28/2024 Oneil Marks Opioid use disorder in remission F11.91 ; SAUL (generalized anxiety disorder) F41.1 and Severe episode of recurrent major depressive disorder, without psychotic features F33.2 [facility] [address] [place] [address] 03/28/2024 Janny Hinderliter Major depressive disorder, recurrent severe without psychotic features F33.2 and SAUL (generalized anxiety disorder) F41.1 [facility] [address] [place] [address] 04/25/2024 Janny Hinderliter Major depressive disorder, recurrent severe without psychotic features F33.2 ; SAUL (generalized anxiety disorder) F41.1 and Opioid use disorder in remission F11.91 [facility] [employer] [facility] [address] [place] [address] 05/09/2024 Oneil Marks Opioid use disorder in remission F11.91 ; SAUL (generalized anxiety disorder) F41.1 and Severe episode of recurrent major depressive disorder, without psychotic features F33.2 [facility] [employer] [address] [place] [address] 05/09/2024 Janny Hinderliter Major depressive disorder, recurrent severe without psychotic features F33.2 and SAUL (generalized anxiety disorder) F41.1 [facility] [employer] [address] [place] [address] 06/06/2024 Sameer Tolentino Severe episode of recurrent major depressive disorder, without psychotic features F33.2 [facility] [employer], [employer] [address] [place] [address] 06/12/2024 Jannyleida Davilaliter Major depressive disorder, recurrent severe without psychotic features F33.2 ; SAUL (generalized anxiety disorder) F41.1 and Opioid use disorder in remission F11.91 [facility] [employer], [employer] [address] [place] [address] 07/11/2024 Janny Giovanniliter Major depressive disorder, recurrent severe without psychotic features F33.2 ; SAUL (generalized anxiety disorder) F41.1 ; Opioid use disorder in remission F11.91 and Encounter for screening for depression Z13.31 [facility] [employer] [address] [facility] [address] [place] [address] 07/18/2024 Janny Giovanniliter Major depressive disorder, recurrent severe without psychotic features F33.2 ; SAUL (generalized anxiety disorder) F41.1 ; Opioid use disorder in remission F11.91 and Encounter for screening for depression Z13.31 [employer] [address] [facility] [address] [place] [address] 07/25/2024 Oneil Marks Opioid use disorder in remission F11.91 ; SAUL (generalized anxiety disorder) F41.1 and Major depressive disorder, recurrent, mild F33.0 [facility] [employer] [address] [place] [address] 07/25/2024 Janny Giovanniliter Major depressive disorder, recurrent severe without psychotic features F33.2 ; SAUL (generalized anxiety disorder) F41.1 ; Opioid use disorder in remission F11.91 ; Encounter for screening for cardiovascular disorders Z13.6 and Encounter for screening for depression Z13.31 [facility] [employer] [address] [place] [address] 08/08/2024 Janny Giovanniliter Major depressive disorder, recurrent severe without psychotic features F33.2 ; SAUL (generalized anxiety disorder) F41.1 ; Opioid use disorder in remission F11.91 and Encounter for screening for depression Z13.31 [facility] [address] [place] [address] 08/15/2024 Liset Hemann Major depressive disorder, recurrent severe without psychotic features F33.2 ; Opioid use disorder in remission F11.91 ; Encounter for screening for cardiovascular disorders Z13.6 and Encounter for screening for depression Z13.31 [facility] [employer] [facility] [address] [place] [address] 09/19/2024 Liset Hemann Major depressive disorder, recurrent severe without psychotic features F33.2 ; SAUL (generalized anxiety disorder) F41.1 ; Opioid use disorder in remission F11.91 and Encounter for screening for depression Z13.31 [facility] [employer] [facility] [address] [place] [address] 09/26/2024 Liset Hemann Major depressive disorder, recurrent severe without psychotic features F33.2 ; SAUL (generalized anxiety disorder) F41.1 and Opioid use disorder in remission F11.91 [facility] [employer] [facility] [address] [facility] [address] [place] [address] 10/10/2024 Liset Hemann Major depressive disorder, recurrent severe without psychotic features F33.2 ; SAUL (generalized anxiety disorder) F41.1 and Opioid use disorder in remission F11.91 [facility] [employer] [facility] [address] [facility] [address] [place] [address] 11/07/2024 Liset Hemann Major depressive disorder, recurrent severe without psychotic features F33.2 ; SAUL (generalized anxiety disorder) F41.1 and Opioid use disorder in remission F11.91 [facility] [employer] [facility] [address] [facility] [address] [place] [address] 11/28/2024 Liset Hemann Major depressive disorder, recurrent severe without psychotic features F33.2 ; SAUL (generalized anxiety disorder) F41.1 and Opioid use disorder in remission F11.91 [facility] [employer] [facility] [address] [place] [address] 01/02/2025 Oneil Marks Opioid use disorder in remission F11.91 ; Major depressive disorder, recurrent, mild F33.0 and SAUL (generalized anxiety disorder) F41.1 [facility] [employer] [place] [address] [place] [address] 01/16/2025 Liset Hemann Major depressive disorder, recurrent, mild F33.0 and SAUL (generalized anxiety disorder) F41.1 [facility] [address] [place] [address] 04/01/2024 Oneil Marks [facility], [facility] [address] [place] [address] 04/17/2024 Oneilwm Mejiasoza [facility], [facility] [address] [place] [address] 05/09/2024 Oneil Shaikha [facility], [facility] [address] [place] [address] 05/23/2024 Janny Kiki [facility], [facility] [address] [place] [address] 06/06/2024 Oneil Marks [facility], [facility] [address] [place] [address] 06/06/2024 Oneil Marks Severe episode of recurrent major depressive disorder, without psychotic features F33.2 [facility] [address] [facility] [address] [place] [address] 06/06/2024 Oneilwm Mejiasoza [facility], [facility] [address] [place] [address] 09/19/2024 Oneilwm Shaikha [facility], [facility] [address] [facility] [address] [place] [address] 07/11/2024 Oneil Marks Assessments Encounter Date Diagnosis (ICD Code) Assessment Notes Treatment Notes Treatment Clinical Notes Section Notes 03/28/2024 Opioid use disorder in remission (ICD-10 - F11.91) On Methadone at [facility], states she sees counselor monthly, gets medicine twice a month. States she is using methadone now as a safe way to manage her pain. Attends NA meetings weekly 1. Bipolar Disorder: - Continue fluoxetine 40 mg daily, taper off sertraline 50 mg over the next week - Continue lamotrigine 200 mg daily Plan: - Monitor mood and response to medication adjustments 2. Anxiety: - Continue clonazepam as needed for anxiety Plan: - Encourage patient to continue therapy and NA meetings for additional support - Reassess anxiety levels at follow-up visit 3. History of Substance Use Disorder: - Maintain methadone 80 mg daily for chronic pain management and opioid use disorder Plan: - Encourage patient to continue counseling at the treatment center and NA meetings for ongoing support 4. Chronic Pain and Possible Autoimmune Disease: - Continue methadone 80 mg daily for pain management Plan: - Consider referral to a military personnel specialist for further evaluation of autoimmune symptoms 5. Treatment-Resista nt Depression: Plan: - Discuss potential treatment options, including esketamine therapy and Transcranial Magnetic Stimulation (TMS) - Assess patient's eligibility and scheduling availability for these treatments - Consider family medical leave if necessary to accommodate treatment schedule 6. Sleep Issues: Plan: - Encourage patient to maintain a consistent sleep schedule - Monitor the effect of medication adjustments on sleep quality Follow-up: - Schedule a follow-up appointment in 4 weeks to assess the patient's response to medication adjustments and discuss potential treatment options for treatment-resista nt depression. 03/28/2024 Major depressive disorder, recurrent severe without psychotic features (ICD-10 - F33.2) 1. Anxiety Management - The patient has expressed feelings of anxiety and being overwhelmed, particularly noted during the recent session with Mehul. - There are challenges in communication and emotional expression reported by the patient. - Current medication regimen includes Prozac and Klonopin for anxiety management. Plan: - Continue with the prescribed Prozac regimen. - Utilize Klonopin as needed for managing anxiety, with caution regarding potential drowsiness. Advise against driving when feeling drowsy. - Arrange a follow-up meeting with Mehul on the to evaluate the effectiveness of the current medication strategy. 2. Relationship Dynamics - The patient has voiced concerns about communication difficulties and feelings of resentment towards her partner, Kunal. - There is a struggle with setting personal boundaries and prioritizing self-needs. Plan: - Promote open dialogue with her partner to express feelings and needs clearly. - Suggest participation in couples counseling to tackle communication barriers and enhance the relationship's health. - Continue with Cognitive Behavioral Therapy (CBT) to foster the development of effective communication skills and assertiveness. 3. 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 - Notable improvements in the work environment and positive feedback from colleagues have been observed. Plan: - Encourage the continuation of stress management techniques previously learned in therapy. - Explore strategies for workload management and the delegation of tasks as needed. - Keep track of work-related stress levels in upcoming sessions to ensure ongoing support and intervention. 4. Sleep Disturbances - The patient has reported occasional sleep difficulties, attributed to anxiety and relationship concerns. - Klonopin has been used as a sleep aid, though there are concerns about its drowsiness effect. Plan: - Advise on practicing good sleep hygiene, including a consistent sleep schedule and a calming bedtime routine. - Recommend exploring non-pharmacologic al sleep aids, such as relaxation techniques and cognitive-behavio ral strategies. - Monitor sleep quality in subsequent sessions and consider a referral to a sleep specialist if persistent issues arise. 5. Daughter's Safety Concerns - Anxiety has been expressed by the patient regarding a potential scam targeting her daughter and an upcoming MRI appointment. Plan: - Offer validation and reassurance concerning her daughter's safety. - Advise on reporting any suspicious activities to the police and seeking their guidance. - Provide support in managing anxiety related to her daughter's MRI appointment, along with resources for effective coping strategies. 03/28/2024 SAUL (generalized anxiety disorder) (ICD-10 - F41.1) 1. Anxiety Management - The patient has expressed feelings of anxiety and being overwhelmed, particularly noted during the recent session with Mehul. - There are challenges in communication and emotional expression reported by the patient. - Current medication regimen includes Prozac and Klonopin for anxiety management. Plan: - Continue with the prescribed Prozac regimen. - Utilize Klonopin as needed for managing anxiety, with caution regarding potential drowsiness. Advise against driving when feeling drowsy. - Arrange a follow-up meeting with Mehul on the to evaluate the effectiveness of the current medication strategy. 2. Relationship Dynamics - The patient has voiced concerns about communication difficulties and feelings of resentment towards her partner, Kunal. - There is a struggle with setting personal boundaries and prioritizing self-needs. Plan: - Promote open dialogue with her partner to express feelings and needs clearly. - Suggest participation in couples counseling to tackle communication barriers and enhance the relationship's health. - Continue with Cognitive Behavioral Therapy (CBT) to foster the development of effective communication skills and assertiveness. 3. 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 - Notable improvements in the work environment and positive feedback from colleagues have been observed. Plan: - Encourage the continuation of stress management techniques previously learned in therapy. - Explore strategies for workload management and the delegation of tasks as needed. - Keep track of work-related stress levels in upcoming sessions to ensure ongoing support and intervention. 4. Sleep Disturbances - The patient has reported occasional sleep difficulties, attributed to anxiety and relationship concerns. - Klonopin has been used as a sleep aid, though there are concerns about its drowsiness effect. Plan: - Advise on practicing good sleep hygiene, including a consistent sleep schedule and a calming bedtime routine. - Recommend exploring non-pharmacologic al sleep aids, such as relaxation techniques and cognitive-behavio ral strategies. - Monitor sleep quality in subsequent sessions and consider a referral to a sleep specialist if persistent issues arise. 5. Daughter's Safety Concerns - Anxiety has been expressed by the patient regarding a potential scam targeting her daughter and an upcoming MRI appointment. Plan: - Offer validation and reassurance concerning her daughter's safety. - Advise on reporting any suspicious activities to the police and seeking their guidance. - Provide support in managing anxiety related to her daughter's MRI appointment, along with resources for effective coping strategies. 04/25/2024 Major depressive disorder, recurrent severe without psychotic features (ICD-10 - F33.2) Relationship issues with partner Continue seeking couples counseling, exploring alternative scheduling options or telehealth to better accommodate schedules. Recommend practicing open communication and setting clear boundaries with the partner. Anxiety and stress Monitor anxiety levels and effectiveness of current stress management strategies. Encourage engagement in self-care activities and continue individual therapy for additional support. Medication management Assist in facilitating communication with the provider for medication refills and to address any concerns with the current regimen. Monitor the patient's response to medications, including Prozac, Klonopin, and methadone, and any side effects. Mood instability Encourage discussion with the psychiatrist about mood symptoms and the potential use of esketamine. Provide support and monitor mood symptoms closely. 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 Offer guidance in managing financial stress and achieving financial independence. Parenting concerns Encourage open communication with the daughter and support the patient in navigating the emotional aspects of this transition. Monitor the patient's emotional well-being and coping strategies during this period. Physical health concerns Support the patient in advocating for her partner's health needs and seeking appropriate medical care. Self-care and personal growth Encourage engagement in self-care activities, such as crocheting and cleaning, and setting personal goals for growth. Monitor progress in personal growth and independence, providing support as needed. Follow-up: Schedule a follow-up appointment for May 02 to review progress and continue addressing the identified issues. 04/25/2024 SAUL (generalized anxiety disorder) (ICD-10 - F41.1) Relationship issues with partner Continue seeking couples counseling, exploring alternative scheduling options or telehealth to better accommodate schedules. Recommend practicing open communication and setting clear boundaries with the partner. Anxiety and stress Monitor anxiety levels and effectiveness of current stress management strategies. Encourage engagement in self-care activities and continue individual therapy for additional support. Medication management Assist in facilitating communication with the provider for medication refills and to address any concerns with the current regimen. Monitor the patient's response to medications, including Prozac, Klonopin, and methadone, and any side effects. Mood instability Encourage discussion with the psychiatrist about mood symptoms and the potential use of esketamine. Provide support and monitor mood symptoms closely. 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 Offer guidance in managing financial stress and achieving financial independence. Parenting concerns Encourage open communication with the daughter and support the patient in navigating the emotional aspects of this transition. Monitor the patient's emotional well-being and coping strategies during this period. Physical health concerns Support the patient in advocating for her partner's health needs and seeking appropriate medical care. Self-care and personal growth Encourage engagement in self-care activities, such as crocheting and cleaning, and setting personal goals for growth. Monitor progress in personal growth and independence, providing support as needed. Follow-up: Schedule a follow-up appointment for May 02 to review progress and continue addressing the identified issues. 05/09/2024 Opioid use disorder in remission (ICD-10 - F11.91) On Methadone at [facility], states she sees counselor monthly, gets medicine twice a month. States she is using methadone now as a safe way to manage her pain. Attends NA meetings weekly 05/09/2024 Major depressive disorder, recurrent severe without psychotic features (ICD-10 - F33.2) Anxiety and Depression Maintain weekly therapy sessions to further address and mitigate symptoms of anxiety and depression. Sleep Disturbances and Nightmares Evaluate the patient's sleep hygiene practices and encourage the establishment of a consistent sleep routine. Introduce the dream rehearsal technique as a method to manage and mitigate nightmares. Continue to monitor the patient's sleep patterns and the occurrence of nightmares in upcoming sessions. Relationship Issues Foster open communication with the partner, Kunal, regarding concerns and emotional experiences. Delve into how personal values and beliefs may be influencing the relationship dynamics. Highlight the significance of physical touch and intimacy within the relationship framework. Consider the benefits of couples therapy to enhance communication skills and address prevailing relationship issues. Coping Strategies and Emotional Regulation Instruct and practice grounding techniques, specifically the use of cold sensations, to manage intense emotions and prevent racing thoughts. Encourage the patient to take a moment to pause and reflect before reacting in emotionally charged situations. Promote engagement in self-care activities, such as massage, to aid in relaxation and overall well-being. Scheduling Difficulties Aim to secure more consistent therapy session timings to ensure uninterrupted care. Investigate alternative scheduling options, including different times or days, to accommodate if Fridays remain unavailable. Follow-up: Schedule a follow-up appointment to assess the patient's progress and continue addressing the outlined concerns. 05/09/2024 SAUL (generalized anxiety disorder) (ICD-10 - F41.1) Anxiety and Depression Maintain weekly therapy sessions to further address and mitigate symptoms of anxiety and depression. Sleep Disturbances and Nightmares Evaluate the patient's sleep hygiene practices and encourage the establishment of a consistent sleep routine. Introduce the dream rehearsal technique as a method to manage and mitigate nightmares. Continue to monitor the patient's sleep patterns and the occurrence of nightmares in upcoming sessions. Relationship Issues Foster open communication with the partner, Kunal, regarding concerns and emotional experiences. Delve into how personal values and beliefs may be influencing the relationship dynamics. Highlight the significance of physical touch and intimacy within the relationship framework. Consider the benefits of couples therapy to enhance communication skills and address prevailing relationship issues. Coping Strategies and Emotional Regulation Instruct and practice grounding techniques, specifically the use of cold sensations, to manage intense emotions and prevent racing thoughts. Encourage the patient to take a moment to pause and reflect before reacting in emotionally charged situations. Promote engagement in self-care activities, such as massage, to aid in relaxation and overall well-being. Scheduling Difficulties Aim to secure more consistent therapy session timings to ensure uninterrupted care. Investigate alternative scheduling options, including different times or days, to accommodate if Fridays remain unavailable. Follow-up: Schedule a follow-up appointment to assess the patient's progress and continue addressing the outlined concerns. 06/06/2024 Severe episode of recurrent major depressive disorder, without psychotic features (ICD-10 - F33.2) 06/06/2024 Severe episode of recurrent major depressive disorder, without psychotic features (ICD-10 - F33.2) Assessment and plan reviewed with patient Call for problems with medication, side effects or need for dosage change Compliance issues reviewed Discussed the risks/benefits of this medication Discussed medication side effects Return if symptoms worsen Treatment options reviewed. discussed that it can take weeks to see full therapeutic effects of psychotropic medications. discussed when to seek emergency services. discussed crisis prevention hotline [phone]. 06/12/2024 Major depressive disorder, recurrent severe without psychotic features (ICD-10 - F33.2) Assessment and Plan: 1. Depression The patient has noted improvement in mood since starting a new medication 7 days ago, yet continues to experience challenges with focus, confidence, and overall mood. Plan: Maintain the current medication regimen and closely monitor the patient's progress. It is recommended that the patient keep a daily mood log to more accurately track fluctuations and improvements. 2. Relationship Difficulties The patient describes ongoing struggles with communication and feelings of being overwhelmed in the living situation with her partner, Kunal. Plan: The patient is encouraged to persist in attending therapy sessions focused on enhancing communication skills with Kunal. Strategies such as discussing significant topics and seeking common ground are advised. 3. Home Environment Reports of discomfort at home due to disorganization and challenges in maintaining cleanliness have been made by the patient. Plan: It is suggested that the patient consider employing a professional cleaning service to assist in managing the home environment, aiming to alleviate stress. 4. Work Performance The patient has expressed concerns about making errors at work and difficulties with staying organized. Plan: The development of an organizational system, for example, utilizing [employer], is encouraged to aid in improving work performance and reducing stress. 5. Social Support The patient recognizes a need for establishing social connections beyond the relationship with Kunal. Plan: The patient is encouraged to allocate time for socializing with friends, participating in meetings, and engaging in activities that foster a sense of individuality and community support. 6. Family Dynamics Feelings of guilt regarding the patient's relationship with her daughter have been reported, with plans to engage in prom dress shopping together. Plan: The patient is encouraged to keep open lines of communication with her daughter and make quality time together a priority. 7. Self-Esteem The patient has reported issues with low self-esteem, particularly in the context of her relationship and work performance. Plan: Therapy sessions will continue to focus on addressing self-esteem concerns, exploring avenues for enhancing confidence and self-appreciation . 06/12/2024 SAUL (generalized anxiety disorder) (ICD-10 - F41.1) Assessment and Plan: 1. Depression The patient has noted improvement in mood since starting a new medication 7 days ago, yet continues to experience challenges with focus, confidence, and overall mood. Plan: Maintain the current medication regimen and closely monitor the patient's progress. It is recommended that the patient keep a daily mood log to more accurately track fluctuations and improvements. 2. Relationship Difficulties The patient describes ongoing struggles with communication and feelings of being overwhelmed in the living situation with her partner, Kunal. Plan: The patient is encouraged to persist in attending therapy sessions focused on enhancing communication skills with Kunal. Strategies such as discussing significant topics and seeking common ground are advised. 3. Home Environment Reports of discomfort at home due to disorganization and challenges in maintaining cleanliness have been made by the patient. Plan: It is suggested that the patient consider employing a professional cleaning service to assist in managing the home environment, aiming to alleviate stress. 4. Work Performance The patient has expressed concerns about making errors at work and difficulties with staying organized. Plan: The development of an organizational system, for example, utilizing [employer], is encouraged to aid in improving work performance and reducing stress. 5. Social Support The patient recognizes a need for establishing social connections beyond the relationship with Kunal. Plan: The patient is encouraged to allocate time for socializing with friends, participating in meetings, and engaging in activities that foster a sense of individuality and community support. 6. Family Dynamics Feelings of guilt regarding the patient's relationship with her daughter have been reported, with plans to engage in prom dress shopping together. Plan: The patient is encouraged to keep open lines of communication with her daughter and make quality time together a priority. 7. Self-Esteem The patient has reported issues with low self-esteem, particularly in the context of her relationship and work performance. Plan: Therapy sessions will continue to focus on addressing self-esteem concerns, exploring avenues for enhancing confidence and self-appreciation . 02/22/2024 Major depressive disorder, recurrent severe without psychotic features (ICD-10 - F33.2) 1. Major Depressive Disorder - Continue the transition from Zoloft to Prozac under the supervision of a medication provider. - Schedule an appointment with a medication provider at the clinic for ongoing medication management. - Consider exploring alternative treatments for treatment-resista nt depression, such as Spravato or TMS, after consultation with the medication provider and ensuring insurance coverage. 2. Generalized Anxiety Disorder - Maintain the use of Klonopin as needed for anxiety, while monitoring for potential side effects and dependency risks. - Discuss the potential for trying alternative medications, like hydroxyzine or propranolol, with the medication provider. 3. Insomnia - Investigate non-pharmacologic al methods to enhance sleep quality, including sleep hygiene practices and relaxation techniques. - Consider the possibility of undergoing a sleep study with the medication provider to diagnose any underlying sleep disorders. 4. Fibromyalgia and Chronic Pain - Continue the administration of methadone for pain management, planning a gradual reduction of the dose under medical guidance. - Explore non-pharmacologic al approaches to pain management, such as physical therapy, massage, or mindfulness-based strategies. 5. Substance Use Disorder (in recovery) - Enhance her participation in NA meetings and re-establish connection with her sponsor. - Persist in engaging with step work and other recovery-focused activities. 6. Relationship and Family Issues - Focus on strengthening relationships with her children and partner through enhanced communication and spending quality time together. - Address the mindset of destination happiness and concentrate on finding sherron in everyday moments. Therapy Plan - Arrange weekly therapy sessions on Fridays with Janny Swanson [facility], for the upcoming three months. - Emphasize cognitive-behavio ral therapy techniques to tackle negative thought patterns, improve emotional regulation, and develop effective coping mechanisms. - Aim to set and accomplish therapy goals, including boosting her self-esteem, diminishing emotional barriers, and elevating overall life satisfaction. Follow-up: - Schedule follow-up appointments to monitor her progress and continue addressing the outlined issues. 02/29/2024 Major depressive disorder, recurrent severe without psychotic features (ICD-10 - F33.2) 1. Adjustment Disorder with Mixed Anxiety and Depressed Mood - Regular attendance at individual therapy sessions is encouraged to provide a space for processing emotions. - Recommend participation in support group meetings for additional emotional support and community. - Promote open communication with the partner and consider couples counseling to enhance relationship dynamics when feasible. 2. Relationship Issues - Encourage the expression of feelings and needs clearly to the partner to foster understanding. - Suggest couples counseling as a means to improve communication and mutual understanding. - Advocate for self-care practices and the establishment of boundaries within the relationship to maintain personal well-being. 3. Financial Stress - Advise on creating a budget and prioritizing bill payments to manage financial obligations effectively. - Suggest exploring financial counseling or resources as a strategy to alleviate financial stress. 4. Sobriety Maintenance - Acknowledge and congratulate the patient on achieving seven years of sobriety, recognizing this significant milestone. - Encourage ongoing participation in support groups and therapy sessions to support continued sobriety. 5. Physical Health Concerns (Recent Illness) - Recommend rest and the use of [id number] medications as needed for symptom relief. - Advise a follow-up with a primary care physician if symptoms persist or worsen, to ensure proper management and recovery. 6. Self-Care and Personal Growth - Encourage engagement in activities that promote self-care and personal growth, such as therapy, support groups, and practicing acts of kindness. - Suggest allocating time for personal reflection and self-discovery to foster a deeper understanding of self and promote emotional well-being. Follow-up: - A follow-up appointment is scheduled for next week to monitor progress and address any ongoing or new concerns. 03/07/2024 Major depressive disorder, recurrent severe without psychotic features (ICD-10 - F33.2) 1. Relationship Dynamics and Mental Health - Sameer reports feeling overwhelmed and taken for granted in her relationship, contributing to stress and anxiety. She describes a pattern of losing herself in relationships and feeling dismissed by her partner, causing significant emotional distress and feelings of instability. - Plan: Sameer and her boyfriend have agreed to create a clear plan to address her concerns upon his return, aiming to ease Sameer's mind and demonstrate his commitment. Discussing professional therapy with her boyfriend suggests a potential openness to couples counseling, though no specific sessions were scheduled. 2. Financial Stress - Sameer expresses significant anxiety regarding her financial situation, highlighting the disparity in income between herself and her boyfriend and dependency on his income for their lifestyle and supporting her children. - Plan: No specific financial planning or counseling interventions were discussed, but her boyfriend has expressed a willingness to address these concerns upon his return. 3. Parenting Concerns - Sameer is worried about the impact of her parenting style on her son, especially regarding exposure to certain media and his understanding of violence and consent. She is also concerned about discussing sensitive topics like pornography and consent. - Plan: Sameer is considering showing her son an educational video about consent to facilitate this conversation, with no specific actions or further educational resources mentioned for immediate implementation. 4. Personal Mental Health - Sameer describes symptoms consistent with anxiety and possibly depression, exacerbated by current life stressors. She reports a history of feeling overwhelmed and unsupported in personal relationships, contributing to her mental health challenges. - Plan: Sameer will continue self care and individual therapy sessions. Follow-up: - Follow up in 2 weeks 03/21/2024 Major depressive disorder, recurrent severe without psychotic features (ICD-10 - F33.2) Assessment and Plan: 1. Upper Respiratory Infection - The patient experienced a sore throat and cough during Thanksgiving, utilizing antibiotics, prednisone, and analgesics for symptom relief. Recovery is ongoing. - Plan: Persist in symptom monitoring and consult the primary care physician if there's no improvement or if symptoms escalate. 2. Anxiety and Depression - Adjustments in medication have been made, with the patient currently on 20 mg of Prozac and 50 mg of Zoloft, leading to a reduction in depression symptoms and a slight decrease in anxiety, including less frequent panic episodes and obsessive thinking. - Plan: Maintain the current medication regimen and schedule a follow-up with Mehul on the to evaluate medication effects and set treatment objectives. 3. Relationship and Identity Issues - The patient faces challenges in preserving her identity within relationships and she suspects symptoms indicative of borderline personality disorder (BPD) in relational contexts. - Plan: Continue with therapy sessions to tackle relationship and identity concerns, enhance coping mechanisms, and strive for a stable sense of self in interpersonal dynamics. 5. Work-related Stress - The patient describes a demanding work environment with extended hours and visits from senior management, contributing to stress. - Plan: Recommend stress management practices, including deep breathing, mindfulness, and establishing work boundaries. Continue therapy to address work-induced stress and formulate coping strategies. 03/28/2024 SAUL (generalized anxiety disorder) (ICD-10 - F41.1) persists 1. Bipolar Disorder: - Continue fluoxetine 40 mg daily, taper off sertraline 50 mg over the next week - Continue lamotrigine 200 mg daily Plan: - Monitor mood and response to medication adjustments 2. Anxiety: - Continue clonazepam as needed for anxiety Plan: - Encourage patient to continue therapy and NA meetings for additional support - Reassess anxiety levels at follow-up visit 3. History of Substance Use Disorder: - Maintain methadone 80 mg daily for chronic pain management and opioid use disorder Plan: - Encourage patient to continue counseling at the treatment center and NA meetings for ongoing support 4. Chronic Pain and Possible Autoimmune Disease: - Continue methadone 80 mg daily for pain management Plan: - Consider referral to a military personnel specialist for further evaluation of autoimmune symptoms 5. Treatment-Resista nt Depression: Plan: - Discuss potential treatment options, including esketamine therapy and Transcranial Magnetic Stimulation (TMS) - Assess patient's eligibility and scheduling availability for these treatments - Consider family medical leave if necessary to accommodate treatment schedule 6. Sleep Issues: Plan: - Encourage patient to maintain a consistent sleep schedule - Monitor the effect of medication adjustments on sleep quality Follow-up: - Schedule a follow-up appointment in 4 weeks to assess the patient's response to medication adjustments and discuss potential treatment options for treatment-resista nt depression. 07/11/2024 Major depressive disorder, recurrent severe without psychotic features (ICD-10 - F33.2) 1. Major Depressive Disorder Assessment: - Patient reports significant improvement in depressive symptoms since starting a new medication, describing feeling ridiculously better and happy, which is unusual for her - Reports being able to get out of bed and no longer having suicidal ideation - Memory and concentration issues persist, affecting job performance - Expresses interest in Spravato treatment for potential further improvement and possible medication reduction Plan: - Continue current antidepressant regimen - Follow up on Spravato prior authorization status and [id number] costs - Monitor depression scores and functional improvements - Discuss potential timing for Spravato treatment initiation, considering patient's schedule and clinician availability 2. Occupational Stress Assessment: - Reports significant stress at work, feeling frazzled and making uncharacteristic mistakes - Expresses concern about job security and frustration with lack of training for potential advancement - Stress is impacting overall well-being and contributing to maladaptive coping mechanisms, such as overeating Plan: - Explore stress management techniques specific to workplace challenges - Discuss strategies for addressing training needs with employer - Consider referral to occupational counseling or career coaching 3. Weight Gain and Disordered Eating Assessment: - Reports significant weight gain, approaching weight - Describes compulsive eating patterns, often eating to the point of feeling ill - Attributes some weight gain to methadone treatment for pain management - History of rapid weight gain in stressful situations - Current environment with partner's food addiction is exacerbating the issue - Expresses desire for intervention to interrupt this pattern Plan: - Discuss potential use of Wegovy for weight management with primary care provider - Explore mindful eating strategies and ways to implement them despite differing schedules with partner - Address potential connection between methadone treatment and sugar cravings - Consider referral to manager group 4. Relationship Issues Assessment: - Reports improvement in relationship with partner, noting increased physical affection and intimacy through implementation of 7-second kiss and 20-second hug technique - Ongoing concerns about partner's weight loss goals and food addiction impacting patient's own eating habits - Expresses feeling stuck but no longer actively planning to leave the relationship Plan: - Encourage continued use of physical affection techniques for bonding - Discuss strategies for supporting partner's realistic weight loss goals while maintaining own healthy habits - Explore couples therapy options if relationship issues persist 07/11/2024 SAUL (generalized anxiety disorder) (ICD-10 - F41.1) 1. Major Depressive Disorder Assessment: - Patient reports significant improvement in depressive symptoms since starting a new medication, describing feeling ridiculously better and happy, which is unusual for her - Reports being able to get out of bed and no longer having suicidal ideation - Memory and concentration issues persist, affecting job performance - Expresses interest in Spravato treatment for potential further improvement and possible medication reduction Plan: - Continue current antidepressant regimen - Follow up on Spravato prior authorization status and [id number] costs - Monitor depression scores and functional improvements - Discuss potential timing for Spravato treatment initiation, considering patient's schedule and clinician availability 2. Occupational Stress Assessment: - Reports significant stress at work, feeling frazzled and making uncharacteristic mistakes - Expresses concern about job security and frustration with lack of training for potential advancement - Stress is impacting overall well-being and contributing to maladaptive coping mechanisms, such as overeating Plan: - Explore stress management techniques specific to workplace challenges - Discuss strategies for addressing training needs with employer - Consider referral to occupational counseling or career coaching 3. Weight Gain and Disordered Eating Assessment: - Reports significant weight gain, approaching weight - Describes compulsive eating patterns, often eating to the point of feeling ill - Attributes some weight gain to methadone treatment for pain management - History of rapid weight gain in stressful situations - Current environment with partner's food addiction is exacerbating the issue - Expresses desire for intervention to interrupt this pattern Plan: - Discuss potential use of Wegovy for weight management with primary care provider - Explore mindful eating strategies and ways to implement them despite differing schedules with partner - Address potential connection between methadone treatment and sugar cravings - Consider referral to manager group 4. Relationship Issues Assessment: - Reports improvement in relationship with partner, noting increased physical affection and intimacy through implementation of 7-second kiss and 20-second hug technique - Ongoing concerns about partner's weight loss goals and food addiction impacting patient's own eating habits - Expresses feeling stuck but no longer actively planning to leave the relationship Plan: - Encourage continued use of physical affection techniques for bonding - Discuss strategies for supporting partner's realistic weight loss goals while maintaining own healthy habits - Explore couples therapy options if relationship issues persist 07/18/2024 Major depressive disorder, recurrent severe without psychotic features (ICD-10 - F33.2) 1. Substance Use Disorder (in remission) with Relapse Risk - Patient reports 7.5 years of sobriety but is experiencing intrusive thoughts and cravings related to intravenous drug use, particularly concerning methadone - These thoughts have been triggered by the upcoming availability of syringes for weight loss injections - Patient demonstrates insight into potential dangers of relapse and has proactively shared these concerns - Current methadone maintenance therapy is complicated by side effects including emotional lability and severe constipation Plan: - Implement safety plan for syringes: patient's partner to lock up and administer injections - Encourage attendance at NA meetings to discuss cravings and intrusive thoughts - Continue methadone maintenance therapy - Follow up with support person (Lynn) as needed - Monitor for signs of relapse: bruising, wolf on arms, altered consciousness, missing medication 2. Anxiety - Patient reports significant anxiety, particularly in work situations, leading to emotional outbursts and difficulty controlling emotions - Anxiety appears to be exacerbated by work-related stress and concerns about daughter's well-being - Patient has a history of multiple medication trials for anxiety management Plan: - Continue current anxiety medication regimen - Explore potential for Spravato (esketamine) treatment; awaiting insurance approval - Provide education on anxiety management techniques 3. Occupational Stress - Patient reports significant distress related to current job, including emotional breakdowns at work and consideration of quitting - This stress is negatively impacting mental health and potentially exacerbating anxiety and substance use disorder concerns Plan: - Encourage exploration of new employment opportunities - Discuss stress management techniques specific to workplace situations - Consider referral to occupational counseling or career services 07/18/2024 SAUL (generalized anxiety disorder) (ICD-10 - F41.1) 1. Substance Use Disorder (in remission) with Relapse Risk - Patient reports 7.5 years of sobriety but is experiencing intrusive thoughts and cravings related to intravenous drug use, particularly concerning methadone - These thoughts have been triggered by the upcoming availability of syringes for weight loss injections - Patient demonstrates insight into potential dangers of relapse and has proactively shared these concerns - Current methadone maintenance therapy is complicated by side effects including emotional lability and severe constipation Plan: - Implement safety plan for syringes: patient's partner to lock up and administer injections - Encourage attendance at NA meetings to discuss cravings and intrusive thoughts - Continue methadone maintenance therapy - Follow up with support person (Lynn) as needed - Monitor for signs of relapse: bruising, wolf on arms, altered consciousness, missing medication 2. Anxiety - Patient reports significant anxiety, particularly in work situations, leading to emotional outbursts and difficulty controlling emotions - Anxiety appears to be exacerbated by work-related stress and concerns about daughter's well-being - Patient has a history of multiple medication trials for anxiety management Plan: - Continue current anxiety medication regimen - Explore potential for Spravato (esketamine) treatment; awaiting insurance approval - Provide education on anxiety management techniques 3. Occupational Stress - Patient reports significant distress related to current job, including emotional breakdowns at work and consideration of quitting - This stress is negatively impacting mental health and potentially exacerbating anxiety and substance use disorder concerns Plan: - Encourage exploration of new employment opportunities - Discuss stress management techniques specific to workplace situations - Consider referral to occupational counseling or career services 07/25/2024 SAUL (generalized anxiety disorder) (ICD-10 - F41.1) persists 07/25/2024 Opioid use disorder in remission (ICD-10 - F11.91) On Methadone at [facility], states she sees counselor monthly, gets medicine twice a month. States she is using methadone now as a safe way to manage her pain. Attends NA meetings weekly 07/25/2024 Major depressive disorder, recurrent severe without psychotic features (ICD-10 - F33.2) 1. Cognitive impairment and work-related stress - Monitor cognitive symptoms and their impact on work performance - Assess for potential medication-relate d cognitive side effects - Encourage patient to participate in additional work training as suggested by the entry manager - Follow change in dosage as prescribed by Oneil 2. Substance Use- In remission - Monitor for changes in thoughts and behaviors to having access to needles at home due to starting semaglutide. - Attend additional recovery meetings for support as needed Follow-up: - Schedule a follow-up appointment to monitor the patient's progress and continue working on the identified issues. 07/25/2024 SAUL (generalized anxiety disorder) (ICD-10 - F41.1) 1. Cognitive impairment and work-related stress - Monitor cognitive symptoms and their impact on work performance - Assess for potential medication-relate d cognitive side effects - Encourage patient to participate in additional work training as suggested by the entry manager - Follow change in dosage as prescribed by Oneil 2. Substance Use- In remission - Monitor for changes in thoughts and behaviors to having access to needles at home due to starting semaglutide. - Attend additional recovery meetings for support as needed Follow-up: - Schedule a follow-up appointment to monitor the patient's progress and continue working on the identified issues. 08/08/2024 Major depressive disorder, recurrent severe without psychotic features (ICD-10 - F33.2) 1. Substance Use Disorder (in remission) - Continue methadone maintenance therapy as prescribed by clinic - Adhere to morning dosing schedule to maintain compliance with clinic requirements - Consider discussing potential dose reduction with methadone clinic provider at next appointment - Follow up with clinic as scheduled for monthly medication dispensing and potential random drug tests 2. Negative Self-Perception and Emotional Regulation - Introduce DBT concept of boyle mind to balance emotional and rational thinking - Teach mindfulness technique of dropping into the pauses between breaths for emotional regulation - Encourage continued work on self-compassion and acceptance of coexisting emotions - Follow up with Liset for ongoing therapy to address negative self-perception and emotional regulation 3. Anxiety and Depression - Continue current management approach for anxiety and depression - Monitor anxiety symptoms, particularly concentration difficulties - Explore potential for Spravato treatment to further address depressive symptoms - Maintain follow-up with Liset for ongoing therapy 08/08/2024 SAUL (generalized anxiety disorder) (ICD-10 - F41.1) 1. Substance Use Disorder (in remission) - Continue methadone maintenance therapy as prescribed by clinic - Adhere to morning dosing schedule to maintain compliance with clinic requirements - Consider discussing potential dose reduction with methadone clinic provider at next appointment - Follow up with clinic as scheduled for monthly medication dispensing and potential random drug tests 2. Negative Self-Perception and Emotional Regulation - Introduce DBT concept of boyle mind to balance emotional and rational thinking - Teach mindfulness technique of dropping into the pauses between breaths for emotional regulation - Encourage continued work on self-compassion and acceptance of coexisting emotions - Follow up with Liset for ongoing therapy to address negative self-perception and emotional regulation 3. 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 States she is using methadone now as a safe way to manage her pain. Attends NA meetings weekly 01/16/2025 Major depressive disorder, recurrent, mild (ICD-10 - F33.0) 01/16/2025 SAUL (generalized anxiety disorder) (ICD-10 - F41.1) 01/02/2025 SAUL (generalized anxiety disorder) (ICD-10 - F41.1) persists 11/28/2024 SAUL (generalized anxiety disorder) (ICD-10 - F41.1) 11/07/2024 SAUL (generalized anxiety disorder) (ICD-10 - F41.1) 08/15/2024 Opioid use disorder in remission (ICD-10 - F11.91) 10/10/2024 SAUL (generalized anxiety disorder) (ICD-10 - F41.1) 09/26/2024 SAUL (generalized anxiety disorder) (ICD-10 - F41.1) 09/19/2024 SAUL (generalized anxiety disorder) (ICD-10 - F41.1) 08/08/2024 Opioid use disorder in remission (ICD-10 - F11.91) 1. Substance Use Disorder (in remission) - Continue methadone maintenance therapy as prescribed by clinic - Adhere to morning dosing schedule to maintain compliance with clinic requirements - Consider discussing potential dose reduction with methadone clinic provider at next appointment - Follow up with clinic as scheduled for monthly medication dispensing and potential random drug tests 2. Negative Self-Perception and Emotional Regulation - Introduce DBT concept of boyle mind to balance emotional and rational thinking - Teach mindfulness technique of dropping into the pauses between breaths for emotional regulation - Encourage continued work on self-compassion and acceptance of coexisting emotions - Follow up with Liset for ongoing therapy to address negative self-perception and emotional regulation 3. Anxiety and Depression - Continue current management approach for anxiety and depression - Monitor anxiety symptoms, particularly concentration difficulties - Explore potential for Spravato treatment to further address depressive symptoms - Maintain follow-up with Liset for ongoing therapy 07/25/2024 Opioid use disorder in remission (ICD-10 - F11.91) 1. Cognitive impairment and work-related stress - Monitor cognitive symptoms and their impact on work performance - Assess for potential medication-relate d cognitive side effects - Encourage patient to participate in additional work training as suggested by the entry manager - Follow change in dosage as prescribed by Oneil 2. Substance Use- In remission - Monitor for changes in thoughts and behaviors to having access to needles at home due to starting semaglutide. - Attend additional recovery meetings for support as needed Follow-up: - Schedule a follow-up appointment to monitor the patient's progress and continue working on the identified issues. 07/18/2024 Opioid use disorder in remission (ICD-10 - F11.91) 1. Substance Use Disorder (in remission) with Relapse Risk - Patient reports 7.5 years of sobriety but is experiencing intrusive thoughts and cravings related to intravenous drug use, particularly concerning methadone - These thoughts have been triggered by the upcoming availability of syringes for weight loss injections - Patient demonstrates insight into potential dangers of relapse and has proactively shared these concerns - Current methadone maintenance therapy is complicated by side effects including emotional lability and severe constipation Plan: - Implement safety plan for syringes: patient's partner to lock up and administer injections - Encourage attendance at NA meetings to discuss cravings and intrusive thoughts - Continue methadone maintenance therapy - Follow up with support person (Lynn) as needed - Monitor for signs of relapse: bruising, wolf on arms, altered consciousness, missing medication 2. Anxiety - Patient reports significant anxiety, particularly in work situations, leading to emotional outbursts and difficulty controlling emotions - Anxiety appears to be exacerbated by work-related stress and concerns about daughter's well-being - Patient has a history of multiple medication trials for anxiety management Plan: - Continue current anxiety medication regimen - Explore potential for Spravato (esketamine) treatment; awaiting insurance approval - Provide education on anxiety management techniques 3. Occupational Stress - Patient reports significant distress related to current job, including emotional breakdowns at work and consideration of quitting - This stress is negatively impacting mental health and potentially exacerbating anxiety and substance use disorder concerns Plan: - Encourage exploration of new employment opportunities - Discuss stress management techniques specific to workplace situations - Consider referral to occupational counseling or career services 07/25/2024 Major depressive disorder, recurrent, mild (ICD-10 - F33.0) 07/11/2024 Opioid use disorder in remission (ICD-10 - F11.91) 1. Major Depressive Disorder Assessment: - Patient reports significant improvement in depressive symptoms since starting a new medication, describing feeling ridiculously better and happy, which is unusual for her - Reports being able to get out of bed and no longer having suicidal ideation - Memory and concentration issues persist, affecting job performance - Expresses interest in Spravato treatment for potential further improvement and possible medication reduction Plan: - Continue current antidepressant regimen - Follow up on Spravato prior authorization status and [id number] costs - Monitor depression scores and functional improvements - Discuss potential timing for Spravato treatment initiation, considering patient's schedule and clinician availability 2. Occupational Stress Assessment: - Reports significant stress at work, feeling frazzled and making uncharacteristic mistakes - Expresses concern about job security and frustration with lack of training for potential advancement - Stress is impacting overall well-being and contributing to maladaptive coping mechanisms, such as overeating Plan: - Explore stress management techniques specific to workplace challenges - Discuss strategies for addressing training needs with employer - Consider referral to occupational counseling or career coaching 3. Weight Gain and Disordered Eating Assessment: - Reports significant weight gain, approaching weight - Describes compulsive eating patterns, often eating to the point of feeling ill - Attributes some weight gain to methadone treatment for pain management - History of rapid weight gain in stressful situations - Current environment with partner's food addiction is exacerbating the issue - Expresses desire for intervention to interrupt this pattern Plan: - Discuss potential use of Wegovy for weight management with primary care provider - Explore mindful eating strategies and ways to implement them despite differing schedules with partner - Address potential connection between methadone treatment and sugar cravings - Consider referral to manager group 4. Relationship Issues Assessment: - Reports improvement in relationship with partner, noting increased physical affection and intimacy through implementation of 7-second kiss and 20-second hug technique - Ongoing concerns about partner's weight loss goals and food addiction impacting patient's own eating habits - Expresses feeling stuck but no longer actively planning to leave the relationship Plan: - Encourage continued use of physical affection techniques for bonding - Discuss strategies for supporting partner's realistic weight loss goals while maintaining own healthy habits - Explore couples therapy options if relationship issues persist 03/28/2024 Severe episode of recurrent major depressive disorder, without psychotic features (ICD-10 - F33.2) lamotrigine 200mg daily Methadone may enhance the serotonergic effect of FLUoxetine HCl Oral Capsule 20 MG. This could result in serotonin syndrome. 1. Bipolar Disorder: - Continue fluoxetine 40 mg daily, taper off sertraline 50 mg over the next week - Continue lamotrigine 200 mg daily Plan: - Monitor mood and response to medication adjustments 2. Anxiety: - Continue clonazepam as needed for anxiety Plan: - Encourage patient to continue therapy and NA meetings for additional support - Reassess anxiety levels at follow-up visit 3. History of Substance Use Disorder: - Maintain methadone 80 mg daily for chronic pain management and opioid use disorder Plan: - Encourage patient to continue counseling at the treatment center and NA meetings for ongoing support 4. Chronic Pain and Possible Autoimmune Disease: - Continue methadone 80 mg daily for pain management Plan: - Consider referral to a military personnel specialist for further evaluation of autoimmune symptoms 5. Treatment-Resista nt Depression: Plan: - Discuss potential treatment options, including esketamine therapy and Transcranial Magnetic Stimulation (TMS) - Assess patient's eligibility and scheduling availability for these treatments - Consider family medical leave if necessary to accommodate treatment schedule 6. Sleep Issues: Plan: - Encourage patient to maintain a consistent sleep schedule - Monitor the effect of medication adjustments on sleep quality Follow-up: - Schedule a follow-up appointment in 4 weeks to assess the patient's response to medication adjustments and discuss potential treatment options for treatment-resista nt depression. 06/12/2024 Opioid use disorder in remission (ICD-10 - F11.91) Assessment and Plan: 1. Depression The patient has noted improvement in mood since starting a new medication 7 days ago, yet continues to experience challenges with focus, confidence, and overall mood. Plan: Maintain the current medication regimen and closely monitor the patient's progress. It is recommended that the patient keep a daily mood log to more accurately track fluctuations and improvements. 2. Relationship Difficulties The patient describes ongoing struggles with communication and feelings of being overwhelmed in the living situation with her partner, Kunal. Plan: The patient is encouraged to persist in attending therapy sessions focused on enhancing communication skills with Kunal. Strategies such as discussing significant topics and seeking common ground are advised. 3. Home Environment Reports of discomfort at home due to disorganization and challenges in maintaining cleanliness have been made by the patient. Plan: It is suggested that the patient consider employing a professional cleaning service to assist in managing the home environment, aiming to alleviate stress. 4. Work Performance The patient has expressed concerns about making errors at work and difficulties with staying organized. Plan: The development of an organizational system, for example, utilizing [employer], is encouraged to aid in improving work performance and reducing stress. 5. Social Support The patient recognizes a need for establishing social connections beyond the relationship with Kunal. Plan: The patient is encouraged to allocate time for socializing with friends, participating in meetings, and engaging in activities that foster a sense of individuality and community support. 6. Family Dynamics Feelings of guilt regarding the patient's relationship with her daughter have been reported, with plans to engage in prom dress shopping together. Plan: The patient is encouraged to keep open lines of communication with her daughter and make quality time together a priority. 7. Self-Esteem The patient has reported issues with low self-esteem, particularly in the context of her relationship and work performance. Plan: Therapy sessions will continue to focus on addressing self-esteem concerns, exploring avenues for enhancing confidence and self-appreciation . 04/25/2024 Opioid use disorder in remission (ICD-10 - F11.91) Relationship issues with partner Continue seeking couples counseling, exploring alternative scheduling options or telehealth to better accommodate schedules. Recommend practicing open communication and setting clear boundaries with the partner. Anxiety and stress Monitor anxiety levels and effectiveness of current stress management strategies. Encourage engagement in self-care activities and continue individual therapy for additional support. Medication management Assist in facilitating communication with the provider for medication refills and to address any concerns with the current regimen. Monitor the patient's response to medications, including Prozac, Klonopin, and methadone, and any side effects. Mood instability Encourage discussion with the psychiatrist about mood symptoms and the potential use of esketamine. Provide support and monitor mood symptoms closely. 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 Offer guidance in managing financial stress and achieving financial independence. Parenting concerns Encourage open communication with the daughter and support the patient in navigating the emotional aspects of this transition. Monitor the patient's emotional well-being and coping strategies during this period. Physical health concerns Support the patient in advocating for her partner's health needs and seeking appropriate medical care. Self-care and personal growth Encourage engagement in self-care activities, such as crocheting and cleaning, and setting personal goals for growth. Monitor progress in personal growth and independence, providing support as needed. Follow-up: Schedule a follow-up appointment for May 02 to review progress and continue addressing the identified issues. 05/09/2024 SAUL (generalized anxiety disorder) (ICD-10 - F41.1) persists 05/09/2024 Severe episode of recurrent major depressive disorder, without psychotic features (ICD-10 - F33.2) lamotrigine 200mg daily Methadone may enhance the serotonergic effect of FLUoxetine HCl Oral Capsule 20 MG. This could result in serotonin syndrome. 07/11/2024 Encounter for screening for depression (ICD-10 - Z13.31) 1. Major Depressive Disorder Assessment: - Patient reports significant improvement in depressive symptoms since starting a new medication, describing feeling ridiculously better and happy, which is unusual for her - Reports being able to get out of bed and no longer having suicidal ideation - Memory and concentration issues persist, affecting job performance - Expresses interest in Spravato treatment for potential further improvement and possible medication reduction Plan: - Continue current antidepressant regimen - Follow up on Spravato prior authorization status and [id number] costs - Monitor depression scores and functional improvements - Discuss potential timing for Spravato treatment initiation, considering patient's schedule and clinician availability 2. Occupational Stress Assessment: - Reports significant stress at work, feeling frazzled and making uncharacteristic mistakes - Expresses concern about job security and frustration with lack of training for potential advancement - Stress is impacting overall well-being and contributing to maladaptive coping mechanisms, such as overeating Plan: - Explore stress management techniques specific to workplace challenges - Discuss strategies for addressing training needs with employer - Consider referral to occupational counseling or career coaching 3. Weight Gain and Disordered Eating Assessment: - Reports significant weight gain, approaching weight - Describes compulsive eating patterns, often eating to the point of feeling ill - Attributes some weight gain to methadone treatment for pain management - History of rapid weight gain in stressful situations - Current environment with partner's food addiction is exacerbating the issue - Expresses desire for intervention to interrupt this pattern Plan: - Discuss potential use of Wegovy for weight management with primary care provider - Explore mindful eating strategies and ways to implement them despite differing schedules with partner - Address potential connection between methadone treatment and sugar cravings - Consider referral to manager group 4. Relationship Issues Assessment: - Reports improvement in relationship with partner, noting increased physical affection and intimacy through implementation of 7-second kiss and 20-second hug technique - Ongoing concerns about partner's weight loss goals and food addiction impacting patient's own eating habits - Expresses feeling stuck but no longer actively planning to leave the relationship Plan: - Encourage continued use of physical affection techniques for bonding - Discuss strategies for supporting partner's realistic weight loss goals while maintaining own healthy habits - Explore couples therapy options if relationship issues persist 07/18/2024 Encounter for screening for depression (ICD-10 - Z13.31) 1. Substance Use Disorder (in remission) with Relapse Risk - Patient reports 7.5 years of sobriety but is experiencing intrusive thoughts and cravings related to intravenous drug use, particularly concerning methadone - These thoughts have been triggered by the upcoming availability of syringes for weight loss injections - Patient demonstrates insight into potential dangers of relapse and has proactively shared these concerns - Current methadone maintenance therapy is complicated by side effects including emotional lability and severe constipation Plan: - Implement safety plan for syringes: patient's partner to lock up and administer injections - Encourage attendance at NA meetings to discuss cravings and intrusive thoughts - Continue methadone maintenance therapy - Follow up with support person (Lynn) as needed - Monitor for signs of relapse: bruising, wolf on arms, altered consciousness, missing medication 2. Anxiety - Patient reports significant anxiety, particularly in work situations, leading to emotional outbursts and difficulty controlling emotions - Anxiety appears to be exacerbated by work-related stress and concerns about daughter's well-being - Patient has a history of multiple medication trials for anxiety management Plan: - Continue current anxiety medication regimen - Explore potential for Spravato (esketamine) treatment; awaiting insurance approval - Provide education on anxiety management techniques 3. Occupational Stress - Patient reports significant distress related to current job, including emotional breakdowns at work and consideration of quitting - This stress is negatively impacting mental health and potentially exacerbating anxiety and substance use disorder concerns Plan: - Encourage exploration of new employment opportunities - Discuss stress management techniques specific to workplace situations - Consider referral to occupational counseling or career services 07/25/2024 Encounter for screening for cardiovascular disorders (ICD-10 - Z13.6) 1. Cognitive impairment and work-related stress - Monitor cognitive symptoms and their impact on work performance - Assess for potential medication-relate d cognitive side effects - Encourage patient to participate in additional work training as suggested by the entry manager - Follow change in dosage as prescribed by Oneil 2. Substance Use- In remission - Monitor for changes in thoughts and behaviors to having access to needles at home due to starting semaglutide. - Attend additional recovery meetings for support as needed Follow-up: - Schedule a follow-up appointment to monitor the patient's progress and continue working on the identified issues. 08/08/2024 Encounter for screening for depression (ICD-10 - Z13.31) 1. Substance Use Disorder (in remission) - Continue methadone maintenance therapy as prescribed by clinic - Adhere to morning dosing schedule to maintain compliance with clinic requirements - Consider discussing potential dose reduction with methadone clinic provider at next appointment - Follow up with clinic as scheduled for monthly medication dispensing and potential random drug tests 2. Negative Self-Perception and Emotional Regulation - Introduce DBT concept of boyle mind to balance emotional and rational thinking - Teach mindfulness technique of dropping into the pauses between breaths for emotional regulation - Encourage continued work on self-compassion and acceptance of coexisting emotions - Follow up with Liset for ongoing therapy to address negative self-perception and emotional regulation 3. Anxiety and Depression - Continue current management approach for anxiety and depression - Monitor anxiety symptoms, particularly concentration difficulties - Explore potential for Spravato treatment to further address depressive symptoms - Maintain follow-up with Liset for ongoing therapy 08/15/2024 Encounter for screening for cardiovascular disorders (ICD-10 - Z13.6) 09/19/2024 Opioid use disorder in remission (ICD-10 - F11.91) 09/26/2024 Opioid use disorder in remission (ICD-10 - F11.91) 10/10/2024 Opioid use disorder in remission (ICD-10 - F11.91) 11/07/2024 Opioid use disorder in remission (ICD-10 - F11.91) 11/28/2024 Opioid use disorder in remission (ICD-10 - F11.91) 09/19/2024 Encounter for screening for depression (ICD-10 - Z13.31) 08/15/2024 Encounter for screening for depression (ICD-10 - Z13.31) 07/25/2024 Encounter for screening for depression (ICD-10 - Z13.31) 1. Cognitive impairment and work-related stress - Monitor cognitive symptoms and their impact on work performance - Assess for potential medication-relate d cognitive side effects - Encourage patient to participate in additional work training as suggested by the entry manager - Follow change in dosage as prescribed by Oneil 2. Substance Use- In remission - Monitor for changes in thoughts and behaviors to having access to needles at home due to starting semaglutide. - Attend additional recovery meetings for support as needed Follow-up: - Schedule a follow-up appointment to monitor the patient's progress and continue working on the identified issues. 03/28/2024 Other Learning About Depression Screening material was printed 1. Bipolar Disorder: - Continue fluoxetine 40 mg daily, taper off sertraline 50 mg over the next week - Continue lamotrigine 200 mg daily Plan: - Monitor mood and response to medication adjustments 2. Anxiety: - Continue clonazepam as needed for anxiety Plan: - Encourage patient to continue therapy and NA meetings for additional support - Reassess anxiety levels at follow-up visit 3. History of Substance Use Disorder: - Maintain methadone 80 mg daily for chronic pain management and opioid use disorder Plan: - Encourage patient to continue counseling at the treatment center and NA meetings for ongoing support 4. Chronic Pain and Possible Autoimmune Disease: - Continue methadone 80 mg daily for pain management Plan: - Consider referral to a military personnel specialist for further evaluation of autoimmune symptoms 5. Treatment-Resista nt Depression: Plan: - Discuss potential treatment options, including esketamine therapy and Transcranial Magnetic Stimulation (TMS) - Assess patient's eligibility and scheduling availability for these treatments - Consider family medical leave if necessary to accommodate treatment schedule 6. Sleep Issues: Plan: - Encourage patient to maintain a consistent sleep schedule - Monitor the effect of medication adjustments on sleep quality Follow-up: - Schedule a follow-up appointment in 4 weeks to assess the patient's response to medication adjustments and discuss potential treatment options for treatment-resista nt depression. 05/09/2024 Other will do pa for spravato 1. Major Depressive Disorder: - Patient reports a decrease in depressive symptoms but still experiences low energy and lack of sherron or excitement. - Patient has tried multiple antidepressants without remission. Plan: - Proceed with prior authorization for Spravato (esketamine nasal spray) as an adjunctive treatment. - Continue fluoxetine 40 mg daily and lamotrigine 200 mg daily. 2. Anxiety: - [facility] and reports that anxiety is affecting her relationship. Plan: - Monitor anxiety levels and consider alternative anxiolytic medications or non-pharmacologi keya interventions if needed. 3. Sleep disturbance: - Patient reports needing more sleep, falling asleep easily but experiencing interrupted sleep due to chronic pain and other factors. Plan: - Address chronic pain and other factors contributing to sleep disturbance. - Consider sleep hygiene education and potential sleep aids if necessary. 4. Chronic pain: - Patient reports chronic pain interrupting sleep. Plan: - Assess the source and severity of chronic pain. - Consider appropriate pain management strategies, including non-pharmacologi keya interventions and potential medication adjustments. 5. Fatigue: - Patient reports constant tiredness and difficulty managing without caffeine. Plan: - Encourage the patient to continue reducing caffeine intake. - Assess for potential underlying causes of fatigue, such as sleep disturbance, chronic pain, or medication side effects. - Consider alternative strategies for energy management. 6. Medication management: - Patient needs a refund on fluoxetine and lamotrigine prescriptions. Plan: - Ensure that the patient has access to the necessary medications and provide assistance with prescription refills as needed. 06/06/2024 Other Cariprazine [ASHP] material was published, Cariprazine material was published, Lamotrigine material was published, Fluoxetine material was published 1. Major Depressive Disorder - PHQ-9: 18 - Patient reports feeling trapped and not good since coming off Zoloft, depression level 7/10. - Current medications: Fluoxetine 40mg, Lamotrigine 200mg, Clonazepam 0.5mg (occasionally), Methadone, multivitamin. - History of multiple medications since age 16 (Remeron, Wellbutrin, Zoloft). - Reports feeling in a fog at work, affecting job performance. - Plan: a. Increase Fluoxetine to 60mg daily (20mg capsules, three times a day). b. adding Vraylar (cariprazine). Provide samples and send prescription. c. Monitor response to medication adjustments. d. Schedule follow-up appointment with Mehul. e. Encourage continued therapy with Radha. 2. Anxiety SAUL-7: 7 - Patient reports anxiety at 5/10 level, with obsessive thoughts and worries. - Plan: a. Continue Clonazepam 0.5mg as needed for anxiety. b. Monitor response to increased Fluoxetine and potential Vraylar addition. c. Encourage discussing anxiety concerns in therapy sessions with Radha. 3. Weight Gain and Appetite - Patient reports significant weight gain and increased appetite. - Interested in Vraylar due to lower weight gain risk compared to Zyprexa. - Plan: a. Educate on potential benefits of Vraylar b. Recommend high-protein, low-carb diet c. Encourage regular physical activity as tolerated. 4. Sleep - Patient reports no difficulty sleeping. - Plan: Continue monitoring sleep patterns during follow-up appointments. 5. Suicidal Ideation and Self-Harm - Patient denies thoughts of suicide or self-harm. - Plan: Continue assessing for suicidal ideation and self-harm during follow-ups and therapy sessions. 07/25/2024 Other lamotrigine 200mg daily Methadone may enhance the serotonergic effect of FLUoxetine HCl Oral Capsule 20 MG. This could result in serotonin syndrome. Mira Ponce, a patient with a history of depression and anxiety, presents with improved mood and energy but reports recent episodes of uncontrollable weeping at work and ongoing concentration difficulties. Major Depressive Disorder Assessment: Patient reports overall improvement in mood and energy since the addition of Vraylar 1.5 mg and increase of fluoxetine to 40 mg daily. However, she experienced a recent episode of uncontrollable weeping at work, indicating some persistent depressive symptoms. The patient's depression has been characterized by fluctuating symptoms, with periods of improvement followed by sudden worsening. The current medication regimen appears to be providing some benefit, but there is room for further optimization. Plan: - Continue fluoxetine 40 mg PO daily - Continue Vraylar 1.5 mg PO daily - Discussed potential for increasing to 3 mg in the future if needed - Decrease lamotrigine to 150 mg PO daily - Rationale: To potentially improve memory issues and due to mood stabilization effects of Vraylar - Follow up in one month to reassess symptoms and medication efficacy Anxiety Disorder Assessment: Patient reports recent exacerbation of anxiety symptoms, requiring the use of clonazepam for three consecutive days at work. The use of clonazepam results in prolonged fatigue for about a week afterward, impacting the patient's functioning. Plan: - Continue clonazepam as needed for acute anxiety symptoms - Monitor frequency of use and impact on daily functioning - Consider alternative anxiety management strategies at next follow-up if symptoms persist Cognitive Difficulties Assessment: Patient reports significant issues with concentration and memory, necessitating the use of detailed lists for daily tasks. These cognitive symptoms are impacting her daily functioning. The current medication regimen, particularly lamotrigine, may be contributing to these cognitive issues. Plan: - Decrease lamotrigine to 150 mg PO daily (as mentioned in depression management) - Reassess cognitive symptoms at next follow-up to determine if medication adjustment has improved memory and concentration Opioid Use Disorder Assessment: Patient continues on methadone maintenance therapy, currently at 80 mg. She reports recent self-initiated dose reduction due to feeling high, demonstrating insight into her treatment needs. The patient is now receiving two-week supplies of medication, suggesting stability in her opioid use disorder management. Plan: - Continue methadone 80 mg as prescribed - Maintain current two-week dispensing schedule - Monitor for any changes in opioid use or treatment adherence the note is transcribed using speech recognition software. It is a reflection of a visit with the patient. It might have some inaccuracy, including medication names and transcribing errors, though efforts have been made to correct them. 01/02/2025 Haylee Ponce, female patient with a history of depression and anxiety, presents for follow-up with stable mood and recent engagement. Depression Assessment: Patient reports stable mood with no significant depressive symptoms. She continues to take fluoxetine 40 mg daily and lamotrigine 150 mg daily for mood stabilization. The patient denies experiencing anxiety but mentions occasional use of clonidine for panic symptoms, approximately twice a month, typically in work-related situations. Plan: - Continue fluoxetine 40 mg daily - Continue lamotrigine 150 mg daily - Continue as-needed clonazepam for panic symptoms (patient reports using approximately twice a month) Overeating Assessment: Patient reports recent weight gain of 8 pounds after discontinuing semaglutide. She attributes the overeating to methadone use and describes it as compulsive behavior, which is atypical for her. The patient expresses a desire to manage this issue through lifestyle modifications. Plan: - Encourage meal planning and preparation to manage overeating - Recommend incorporating protein shakes and pre-planned meals to improve dietary choices - Discuss possibility of reintroducing Wellbutrin if overeating persists, as patient reports previous tolerability Sleep pattern Assessment: Patient reports adequate sleep with no difficulty falling asleep or staying asleep. She notes feeling tired frequently but attributes this to seasonal changes. Plan: - Continue current sleep hygiene practices - Monitor for any changes in sleep pattern or quality the note is transcribed using speech recognition software. It is a reflection of a visit with the patient. It might have some inaccuracy, including medication names and transcribing errors, though efforts have been made to correct them. Plan Of Treatment Pending Test Test Name Order Date UDT 03/28/2024 Next Appt Details Provider Name:Oneil connelly, 05/01/2025 10:15:00 AM, 6805 COUNTS INCLUDE 234 BEDS AT [facility] [address], [facility] [address], [place], [address], Insurance Providers Payer Name Payer Address Payer Phone Subscriber Number Group Number Insured Name Patient Relationship to Insured Coverage Start Date Coverage End Date [facility] [address] [place] [address] [id number] Mira Ponce Self - patient is the insured Medical (General) History Medical History History ICD Code Past Psychiatric History: An xiety Disorder,Panic Disorder,PTSD,Major Depressive Episode,Bipolar Disorder abdominal aortic aneurysm: No atrial fibrillation: No chronic fatigue syndrome: Yes essential tremor: No hyperlipidemia: No hypertension: No Parkinson's disease: No restless leg syndrome: No stroke: No subdural hematoma: No type 1 diabetes mellitus: No type 2 diabetes mellitus: No vitamin B12 deficiency: No vitamin D deficiency: No Past Psychiatric History: An xiety Disorder,Panic Disorder,PTSD,Psychotic Episode,Major Depressive Episode,Bipolar Disorder
--- NOTE | 2025-02-16 08:47 | ED.URI ---
HPI - URI/Sore Throat General Chief Complaint: Upper Respiratory Infection Stated Complaint: strep Time Seen by Provider: 02/16/25 08:47 Source: patient Mode of arrival: ambulatory Limitations: no limitations History of Present Illness HPI Narrative: 39-year-old female presents with complaint of fatigue, body aches, chills, sore throat for 2 days. Denies nausea vomiting. Reports I feel like I am getting sick. Concern for strep throat. Patient was in hospital 3 days ago for kidney stones. Afebrile. All systems reviewed and negative except as noted. Related Data Home Medications ?Medication ?Instructions ?Recorded ?Confirmed ?Last Taken ?Type clonazepam 0.5 mg disintegrating 0.5 mg PO DAILY 04/15/21 02/05/25 Unknown History tablet lamotrigine 200 mg tablet 200 mg PO DAILY 04/15/21 02/05/25 Unknown History (Lamictal) methadone 40 mg soluble tablet 40 mg PO DAILY 05/12/23 02/05/25 Unknown History fluoxetine 40 mg capsule 40 mg PO 02/05/25 02/05/25 Unknown History levonorgestrel (Mirena) 1 device intrauterine ONCE 02/05/25 02/05/25 Unknown History semaglutide 0.25 mg or 0.5 mg (2 0.25 mg subcut WEEKLY 02/16/25 02/16/25 Unknown History mg/3 mL) subcutaneous pen injector Allergies Allergy/AdvReac Type Severity Reaction Status Date / Time Sulfa (Sulfonamide Allergy Unknown Hives / Verified 02/16/25 08:38 Antibiotics) Red Face PMFSH Past Medical History Medical History Bipolar 1 disorder Anxiety HSV-1 infection History of depression Surgical History Surgical History History of loop electrical excision procedure (LEEP) H/O gynecological procedure 2012 insertion 2014 removal 2020 insertion Family History Family History Grandparent Hypertension Heart disease Diabetes mellitus Social History Social History Smoking status: Current every day smoker Tobacco type: e-cigarettes/vaping Alcohol intake: never Substance use: never Substance use type: does not use Do You Feel Safe in your Home?: Yes Lack of Transportation: No Lack of Food: Never True Current Housing: I Have Housing Concerned About Future Housing: No Difficulty Paying Gas/Electric Bills: No Difficulty Paying for Meds: No Currently Unemployed: No Education: Trade/Vocational Certificate Difficulty w/ Childcare or Family Care: No Living arrangements: with family Occupation/Education: occupation Gender identity (if verbalized by the patient): Female Sexual Orientation (if Verbalized by the Patient): Straight or Heterosexual Comments At time of signature, agree with nursing past medical, surgical, social and family history. There is no relevant family history pertinent to the presenting complaint. Exam Narrative: GENERAL: This is a well-nourished, well-developed patient, in no apparent distress. HEAD: normocephalic, atraumatic. EYES: PERRL. Sclera clear/white. Vision is grossly intact. EARS: External ears normal, auditory canals clear and without drainage, TMs normal without perforation. Hearing grossly intact. NOSE: External nose normal with no obvious nasal discharge, nares without redness, no rhinorrhea. THROAT: Mucous membranes moist, Erythematous ulcer to left tonsil with mild swelling. NECK: Neck supple, non-tender without lymphadenopathy, masses or thyromegaly. CARDIOVASCULAR: Regular rate and rhythm without murmurs, gallops, or rubs. RESPIRATORY: Clear to auscultation. Breath sounds equal bilaterally. No wheezes, rales, or rhonchi. SKIN: warm, Dry, intact with no suspicious lesions or rash, good texture and turgor. NEURO: awake, alert, and oriented to person, place and time. There were no obvious focal neurologic abnormalities. EXTREMITIES: No joint tenderness, effusion, or edema noted. Course Course Level of Care: Express Care Visit Vital Signs Vital signs: Vital Signs Temperature 36.5 C 02/16/25 08:39 Pulse Rate 83 02/16/25 08:39 Respiratory Rate 16 02/16/25 08:39 Blood Pressure 97/49 L 02/16/25 08:39 Pulse Oximetry 99 02/16/25 08:39 Temperature 36.5 C 02/16/25 08:39 Pulse Rate 83 02/16/25 08:39 Respiratory Rate 16 02/16/25 08:39 Blood Pressure 97/49 L 02/16/25 08:39 Pulse Oximetry 99 02/16/25 08:39 Reviewed MDM - URI/Sore Throat MDM Narrative Medical decision making narrative: negative COVID, influenza and strep. Strep culture ordered. History of HSV 1. Will treat with antiviral as precaution. Patient agrees with plan of care. Patient is alert, nontoxic. Differential Diagnosis Differential diagnosis: Likely upper respiratory infection, viral infection, influenza and pharyngitis Lab Data Labs: Lab Results 02/16/25 Range/Units 09:24 POC Influenza A Ag Negative (Negative) POC Influenza B Ag Negative (Negative) POC SARS CoV-2 Ag Negative (Negative) POC Grp A Strep Screen Negative (Negative) Discharge Plan Discharge Clinical Impression: Acute viral syndrome, Throat ulcer Patient Disposition: Home Condition: Stable Instructions: Viral Syndrome (ED) Additional Instructions: Your covid, influenza and strep test were negative. Your symptoms are viral and may last 7 to 10 days. Take medication as precribed to treat ulcer to throat. Take ibuprofen or tylenol every 6 to 8 hours as needed for pain. Drink plenty of water and rest. See your doctor if not improving. Patient Language: Portuguese Prescriptions: New famciclovir 500 mg tablet 500 mg PO Q12H 7 Days Qty: 14 0RF No Action lamotrigine [Lamictal] 200 mg Tablet 200 mg PO DAILY clonazepam 0.5 mg Tablet,Disintegrating 0.5 mg PO DAILY semaglutide 0.25 mg or 0.5 mg (2 mg/3 mL) pen injector 0.25 mg subcut WEEKLY Rx Instructions: for 4 weeks methadone 40 mg Tablet,Soluble 40 mg PO DAILY Mirena 21 mcg/24hr (up to 8 yrs) 52 mg intrauterine device 1 device intrauterine ONCE Rx Instructions: as a single dose fluoxetine 40 mg capsule 40 mg PO Follow-up/Referrals: UNKNOWN,DOCTOR [Primary Care Provider] Stand Alone Forms: Work/School Release IP Time of Disposition: 09:18
[2025-02-16 09:27] LABS: EDCOVIDSCREEN Negative (Negative); EDINFLUASCREEN Negative (Negative); EDINFLUBSCREEN Negative (Negative); EDSTREPNEGPOS1 Negative (Negative)
== END 2025-02-16 09:25 | disposition home or self-care (01) ==
PROVIDERS: Emergency Provider Nurse Practitioner Family
DX: B34.9 Viral infection, unspecified (principal); J39.2 Other diseases of pharynx; Z20.822 Contact with and (suspected) exposure to COVID-19; F17.290 Nicotine dependence, other tobacco product, uncomplicated; F41.9 Anxiety disorder, unspecified; F31.9 Bipolar disorder, unspecified
CPT/HCPCS: 87081; 87426; 87804; 87880; 99213; G0463